=== PATIENT | male | born 1935 | race Caucasian/White ===

== ENCOUNTER 2017-04-12 14:30 | Outpatient (CLI) | payer MEDICARE, OTHER | END 2017-04-12 14:31 | disposition home or self-care (01) | LOC: LAB.R 14:30 | PROVIDERS: ATTEND Family Medicine | DX: L02.91 Cutaneous abscess, unspecified (principal) | CPT/HCPCS: 87070; 87205 ==

== ENCOUNTER 2018-07-27 15:34 | Outpatient (CLI) | payer MEDICARE, OTHER | END 2018-07-27 15:35 | disposition critical access hospital (66) | LOC: EMS 15:34 | PROVIDERS: ATTEND Surgery | DX: R06.02 Shortness of breath (principal) | CPT/HCPCS: A0425; A0427 ==

== ENCOUNTER 2018-07-27 15:56 | Inpatient (IN) | payer MEDICARE, OTHER ==
--- NOTE | 2018-07-27 16:15 | ED Physician Documentation ---
PD HPI CHEST PAIN - Stated complaint Stated Complaint: AFIB - Chief complaint Chief Complaint: Cardiac - History obtained from History obtained from: Patient, Family - History of Present Illness Timing - onset: Last night (2am started feeling dyspneic with sweating. Not assoc with chest pain. Noted BP at home was high, 130-175/70-85.) Review of Systems Ten Systems: 10 systems reviewed and negative Constitutional: denies: Fever, Chills Ears: reports: Reviewed and negative Nose: reports: Reviewed and negative Throat: reports: Reviewed and negative GI: reports: Reviewed and negative PD PAST MEDICAL HISTORY - Past Medical History Cardiovascular: None Respiratory: None Endocrine/Autoimmune: None GI: 21 : None HEENT: Chronic vision loss Psych: None Musculoskeletal: None Derm: Eczema - Past Surgical History Past Surgical History: Yes General: Colonoscopy - Present Medications Home Medications: Ambulatory Orders Medication Instructions Recorded Confirmed RX: Finasteride 5 mg PO QPM 07/27/18 07/27/18 RX: Metoprolol Succinate 100 mg PO DAILY 07/27/18 07/27/18 - Allergies Allergies/Adverse Reactions: Allergies Allergy/AdvReac Type Severity Reaction Status Date / Time Penicillins Allergy Intermediate Hives Verified 02/12/13 15:41 - Social History Does the pt smoke?: No Smoking Status: Never smoker Does the pt drink ETOH?: Yes Does the pt have substance abuse?: No - Immunizations Immunizations are current?: Yes - POLST Patient has POLST: No PD ED PE NORMAL - Vitals Vital signs reviewed: Yes (128 HR) - General General: Alert and oriented X 3, No acute distress - HEENT HEENT: PERRL, EOMI - Neck Neck: Supple, no meningeal sign, No bony TTP - Cardiac Cardiac: Other (irregular) - Respiratory Respiratory: No respiratory distress, Clear bilaterally - Abdomen Abdomen: Normal bowel sounds, Soft, Non tender - Back Back: No CVA TTP, No spinal TTP - Derm Derm: Normal color, Warm and dry - Extremities Extremities: No edema, No calf tenderness / cord - Neuro Neuro: Alert and oriented X 3, Normal speech - Psych Psych: Normal mood, Normal affect Results - Vitals Vitals: Vital Signs - 24 hr 07/27/18 07/27/18 07/27/18 16:03 16:57 17:22 Temperature 36.4 C L Heart Rate 128 H 107 H 108 H Respiratory 22 24 20 Rate Blood Pressure 154/108 H 100/85 H 140/99 H O2 Saturation 96 97 95 Oxygen O2 Source Room air - EKG (time done) 1602 Rate: Rate (enter#) (117) Rhythm: Atrial fibrillation Intervals: LBBB Computer interpretation: Agree with computer - Labs Labs: Laboratory Tests 07/27/18 07/27/18 07/27/18 16:03 16:03 16:30 WBC 6.1 RBC 4.34 L Hgb 14.3 Hct 43.2 MCV 99.5 H MCH 32.9 H MCHC 33.1 RDW 13.8 Plt Count 250 MPV 8.0 Neut # (Auto) 5.0 Lymph # (Auto) 0.3 L [place] # (Auto) 0.6 Eos # (Auto) 0.1 Baso # (Auto) 0.2 H Absolute Nucleated RBC 0.00 Nucleated RBC % 0.1 Sodium Potassium Chloride Carbon Dioxide Anion Gap BUN Creatinine Estimated GFR (MDRD) Glucose Calcium Magnesium Total Bilirubin AST ALT Alkaline Phosphatase Troponin I 0.05 B-Natriuretic Peptide Total Protein Albumin Globulin Albumin/Globulin Ratio Lipase TSH Ethyl Alcohol < 5.0 07/27/18 07/27/18 07/27/18 16:30 16:30 16:30 WBC RBC Hgb Hct MCV MCH MCHC RDW Plt Count MPV Neut # (Auto) Lymph # (Auto) [place] # (Auto) Eos # (Auto) Baso # (Auto) Absolute Nucleated RBC Nucleated RBC % Sodium 140 Potassium 3.9 Chloride 106 Carbon Dioxide 23 Anion Gap 11.0 BUN 29 H Creatinine 1.4 H Estimated GFR (MDRD) 48 L Glucose 113 H Calcium 8.5 Magnesium 2.3 Total Bilirubin 1.8 H AST 30 ALT 32 Alkaline Phosphatase 78 Troponin I 0.05 B-Natriuretic Peptide Total Protein 6.9 Albumin 3.4 Globulin 3.5 Albumin/Globulin Ratio 1.0 Lipase 27 TSH 3.18 Ethyl Alcohol 07/27/18 16:30 WBC RBC Hgb Hct MCV MCH MCHC RDW Plt Count MPV Neut # (Auto) Lymph # (Auto) [place] # (Auto) Eos # (Auto) Baso # (Auto) Absolute Nucleated RBC Nucleated RBC % Sodium Potassium Chloride Carbon Dioxide Anion Gap BUN Creatinine Estimated GFR (MDRD) Glucose Calcium Magnesium Total Bilirubin AST ALT Alkaline Phosphatase Troponin I B-Natriuretic Peptide 732 H Total Protein Albumin Globulin Albumin/Globulin Ratio Lipase TSH Ethyl Alcohol PD MEDICAL DECISION MAKING - ED course ED course: This is an 82-year-old gentleman presents with new onset atrial fibrillation. He also has a new or at least somewhat recent left bundle branch block, we know it was not there in 2012. On the monitor besides having rapid atrial fibrillation he is also having frequent episodes of paroxysmal ventricular tachycardia which are relatively asymptomatic. He was rate controlled with divided doses of metoprolol, but given the new left bundle branch block and the recurrent ventricular tachycardia structural or ischemic heart disease is significantly more concerning than in your [id number]-mill new onset atrial fi brillation and therefore he will be placed in observation and I called the hospitalist for same at 5:15 PM. Departure - Departure Disposition: ED Place in Observation Clinical Impression: Ventricular tachycardia, Atrial fibrillation Condition: Fair Discharge Date/Time: 07/27/18 18:50
[2018-07-27] MEDS ORDERED: METOPROLOL 5 MG/5 ML VIAL IVP STA ×2 (16:30→17:14)
[2018-07-27 16:36] LABS: BASOPHILS # (AUTO) 0.2 10^3/uL (0.0-0.1); BASOPHILS % (AUTO) 2.8 %; EOSINOPHILS # (AUTO) 0.1 10^3/uL (0.0-0.7); EOSINOPHILS % (AUTO) 1.1 %; HGB - HEMOGLOBIN 14.3 g/dL (14.0-18.0); LYMPHOCYTES # (AUTO) 0.3 10^3/uL (1.5-3.5); LYMPHOCYTES % (AUTO) 4.4 %; MEAN CORPUSCULAR HEMOGLOBIN 32.9 pg (27.0-31.0); MEAN CORPUSCULAR HGB CONC 33.1 g/dL (32.0-36.0); MEAN CORPUSCULAR VOLUME 99.5 fL (80.0-94.0); MONOCYTES # (AUTO) 0.6 10^3/uL (0.0-1.0); MONOCYTES % (AUTO) 9.2 %; NEUTROPHILS % (AUTO) 82.5 %; PLT - PLATELET COUNT 250 10^3/uL (130-450); RED BLOOD COUNT 4.34 10^6/uL (4.70-6.10); RED CELL DISTRIBUTION WIDTH 13.8 % (12.0-15.0); WHITE BLOOD COUNT 6.1 x10^3/uL (4.8-10.8)
[2018-07-27 16:58] LABS: ALBUMIN 3.4 g/dL (3.2-5.5); BILIRUBIN,TOTAL 1.8 mg/dL (0.2-1.0); CALCIUM 8.5 mg/dL (8.5-10.3); CREATININE 1.4 mg/dL (0.6-1.2); MAGNESIUM 2.3 mg/dL (1.7-2.8); TOTAL PROTEIN 6.9 g/dL (6.7-8.2)
[2018-07-27] MEDS ORDERED: SODIUM CHLORIDE FLUSH 0.9% 10 ML SYRINGE IVP PRN (17:54)
[2018-07-27] MEDS ORDERED: ACETAMINOPHEN 325 MG TABLET PO PRN (17:54)
[2018-07-27] MEDS ORDERED: LACTATED RINGERS 1,000 ML IV SCH (18:00)
--- NOTE | 2018-07-27 18:27 | XRAY Report ---
Reason: new afib with arrythmias Procedure Date: 07/27/2018 Accession Number: [id number] / [id number] Procedure: XR - Chest 1 View X-Ray CPT Code: 28724 FULL RESULT: EXAM: CHEST RADIOGRAPHY EXAM DATE: 07/27/2018 05:55 PM. CLINICAL HISTORY: New afib with arrythmia. COMPARISON: 02/16/2013 5:53 PM. TECHNIQUE: 1 view. FINDINGS: Lungs/Pleura: Lungs are well expanded. There is increased opacity within the lower lungs. There is costophrenic sulcus blunting. There is no evidence of pneumothorax. Mediastinum: There is mild cardiomegaly. There is thoracic aortic tortuosity. Other: None. IMPRESSION: 1. There is mild cardiomegaly with thoracic aortic tortuosity. 2. There is increased opacity within the mid and lower lungs with costophrenic sulcus blunting. Findings are suspicious for lung edema secondary to heart failure. 3. No evidence of pneumothorax. RADIA
[2018-07-27] MEDS ORDERED: FUROSEMIDE 20 MG/2 ML VIAL IVP SCH (18:41)
[2018-07-27] MEDS: FINASTERIDE 5 MG TABLET PO SCH (20:16)
--- NOTE | 2018-07-27 21:17 | HISTORY & PHYSICAL EXAMINATION ---
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 The patient went to see his doctor for a routine visit several days ago and he was found to have an "abnormal EKG" and was referred to a Stamping Die Maker, who he has not seen yet. He awoke this morning at 2:00 a.m. with sudden shortness of breath and diaphoresis. No chest pain. He measured his blood pressure which was elevated. He saw his PCP who sent him to the emergency room many hours later, however and was found to be in Afib of new onset with left bundle branch block, heart rate in the 100s to 120s and he received IV beta dolores 5 mg. Of note is that telemetry also showed bursts of Vtach with a different morphology than his left bundle appearing Afib rhythm. He is being placed in Observation for evaluation of the new rhythm and his sudden shortness of breath with diaphoresis. PAST MEDICAL HISTORY: HTN, BPH, colon or skin cancer. SOCIAL HISTORY: The patient is a nonsmoker, does drink alcohol, denies any illicit drug use. FAMILY HISTORY: Noncontributory. REVIEW OF SYSTEMS: The patient denies any past cardiac history, has never had a stress test, denies CHF symptoms or angina. He did describe possible palpitations just today. He has never had syncope. He describes an Echo done several times durimg his chemo and was told he "had a strong heart'. A comprehensive review of systems was performed and the pertinent positives are listed, the rest are negative. PHYSICAL EXAMINATION GENERAL: Elderly white male. He is in no distress sitting upright in bed. VITAL SIGNS: Blood pressure 154/108, heart rate 108 to 128 in Afib. After the IV beta dolores, the heart rate has come down to 50 to 100 in Afib. He is afebrile. Room air oxygen saturation 95%. HEENT: Unremarkable except [place]. NECK: Without JVD. No thyromegaly. No carotid bruits. LUNGS: Clear. HEART: Sounds irregular. No murmur. ABDOMEN: Soft, nontender. No organomegaly. EXTREMITIES: No clubbing, cyanosis, edema. NEUROLOGIC: Grossly intact. LABORATORIES: Normal electrolytes, BUN 29, creatinine 1.4. Normally, his creatinine is lower. Bilirubin elevated at 1.8 with normal AST, ALT and alk phos. Troponin is normal at 0.05. TSH is normal at 3.12. BNP is pending. White count 6.1 with a normal differential, hemoglobin 14.3 with elevated MCV of 99.5, normal platelets of 250. No INR was done. Serum toxicology showed no alcohol present. No urinalysis was done. Chest x-ray blunted angle consistent with CHF and cardiomegaly is present. EKG: Afib with left bundle branch block. ASSESSMENT AND PLAN: 1. New onset of atrial fibrillation. 2. Paroxysmal runs of ventricular tachycardia. 3. New left bundle branch block. 4. Hyperbilirubinemia with macrocytosis on his CBC but normal liver tests. 5. Acute kidney injury with elevation of BUN and creatinine, possibly from dehydration. PLAN: Place the patient in Observation status, on telemetry. Continue with his p.o. beta dolores dose, medication for BPH and for DVT prophylaxis, we will use Lovenox. Cycle his troponins x3. Obtain a BNP and follow this. Give Lasix IV x1 and follow his I's and O's and daily weights. Follow his BMP and magnesium daily. Obtain an Echo to establish LV and RV contractility. Aftre knowing the EF, his CHADS score will be determined. Magnesium and Potassium were normal, so not the etiology for the V-tach, but this may have been elevated from his new renal insufficiency. Follow his BUN and creatinine daily and if elevated, we will begin a workup for intrinsic renal disease. Avoid nephrotoxic agents. CODE STATUS: DNR (has POLST file). DEEP VENOUS THROMBOSIS PROPHYLAXIS: Lovenox. ATTESTATION: The patient is expected to be discharged and transferred to another facility within 96 hours: Yes. cc: Marley Ellis MD TD: 07/27/2018 19:18 MTDD
[2018-07-27 21:29] LABS: MUDS CUTOFF CONCENTRATIONS CUTOFF CONC BELOW:
[2018-07-27 21:41] LABS: AMPHETAMINE SCREEN,URINE NEGATIVE (NEGATIVE); BENZODIAZEPINES SCREEN, URINE NEGATIVE (NEGATIVE); COCAINE SCREEN URINE NEGATIVE (NEGATIVE); METHADONE SCREEN, URINE NEGATIVE (NEGATIVE); METHAMPHETAMINES SCREEN, URINE NEGATIVE (NEGATIVE); OPIATE SCREEN, URINE NEGATIVE (NEGATIVE); OXYCODONE SCREEN, URINE NEGATIVE (NEGATIVE); PROPOXYPHENE SCREEN, URINE NEGATIVE (NEGATIVE); TRICYCLIC ANTIDEPRESSANT,URINE NEGATIVE (NEGATIVE)
[2018-07-27] MEDS: SODIUM CHLORIDE FLUSH 0.9% 10 ML SYRINGE IVP SCH (23:47)
[2018-07-28 05:29] LABS: BASOPHILS # (AUTO) 0.1 10^3/uL (0.0-0.1); EOSINOPHILS # (AUTO) 0.1 10^3/uL (0.0-0.7); EOSINOPHILS % (AUTO) 2.2 %; HGB - HEMOGLOBIN 13.6 g/dL (14.0-18.0); LYMPHOCYTES # (AUTO) 0.4 10^3/uL (1.5-3.5); LYMPHOCYTES % (AUTO) 6.8 %; MEAN CORPUSCULAR HEMOGLOBIN 33.1 pg (27.0-31.0); MEAN CORPUSCULAR HGB CONC 33.3 g/dL (32.0-36.0); MEAN CORPUSCULAR VOLUME 99.3 fL (80.0-94.0); MEAN PLATELET VOLUME 7.8 fL (7.4-11.4); MONOCYTES # (AUTO) 0.5 10^3/uL (0.0-1.0); MONOCYTES % (AUTO) 10.4 %; NEUTROPHILS # (AUTO) 4.2 10^3/uL (1.5-6.6); NEUTROPHILS % (AUTO) 79.6 %; PLT - PLATELET COUNT 251 10^3/uL (130-450); RED BLOOD COUNT 4.11 10^6/uL (4.70-6.10); RED CELL DISTRIBUTION WIDTH 13.9 % (12.0-15.0); WHITE BLOOD COUNT 5.3 x10^3/uL (4.8-10.8)
[2018-07-28 05:44] LABS: ALBUMIN 3.2 g/dL (3.2-5.5); BILIRUBIN,TOTAL 1.3 mg/dL (0.2-1.0); CALCIUM 8.3 mg/dL (8.5-10.3); CREATININE 1.4 mg/dL (0.6-1.2); MAGNESIUM 2.3 mg/dL (1.7-2.8); TOTAL PROTEIN 6.4 g/dL (6.7-8.2)
[2018-07-28] MEDS: PANTOPRAZOLE 40 MG TABLET PO SCH (06:24)
[2018-07-28] MEDS: POLYETHYLENE GLYCOL 3350 17 GM PACKET PO SCH (07:21)
[2018-07-28] MEDS ORDERED: METOPROLOL SUCCINATE 50 MG TABLET PO SCH ×2 (09:00→21:00)
[2018-07-28] MEDS ORDERED: ENOXAPARIN 40 MG/0.4 ML SYRINGE SUBQ SCH (09:00)
[2018-07-28] MEDS: SODIUM CHLORIDE FLUSH 0.9% 10 ML SYRINGE IVP SCH ×3 (09:02→23:44)
[2018-07-28] MEDS ORDERED: FUROSEMIDE 20 MG TABLET PO SCH (12:00)
[2018-07-28] MEDS: APIXABAN 2.5 MG TABLET PO SCH ×2 (13:47→20:51)
[2018-07-28] MEDS: SPIRONOLACTONE 25 MG TABLET PO SCH (13:47)
--- NOTE | 2018-07-28 15:03 | PROVIDER PROGRESS NOTE ---
Assessment/Plan - Problem List (1) Atrial fibrillation Qualifiers: Atrial fibrillation type: persistent Qualified Code(s): I48.1 - Persistent atrial fibrillation Assessment/Plan: His HR is under better control with the few addnl doses of iv Metoprolol. Will increase po Metoprolol from 100 mg daily to 100 mg in am and 50 mg in pm. Remain on telemetry as doses being titrated. Assess HR control with increased activity, explained to Pt and . Also, his CHADS score = 3 (CHF, HTN and age>75), therefore he will be put on anticoagulant. Will begin Eliquis and stop Lovenox (which was a DVT prophylactic dose). Hyperthyroidism has been riled out, as the cause of Afib. He will need eval for CAD, which can be done as an outpatient, after his orthopnea from heart failure is controlled. (2) Acute on chronic systolic CHF (congestive heart failure), NYHA class 3 Assessment/Plan: Troponins were flat, ruling out an acute [place]. The Echo shows LVEF of 35-40% with global hypokinesis and mild-moderate pulmonary HTN, mild-moderate mitral and tricuspid regurgitation. Will increase Metoprolol dose, add Spironolactone, avoid NARINDER (since he had excessive BP drop and has elevated creat), give (several days) of Lasix. Will adjust meds based on his SOB and any orthostasis, therefore Pt will stay longer and I will make him an inpatient. This was explained to Pt and . The etiology is most likely his chemo Hx (he got 5FU and possibly Adriamycin), but he will need evaluation for CAD as the cause of his systolic heart failure. Will check a Lipid panel. Monitor BMP and Mg daily. (3) Ventricular tachycardia Assessment/Plan: No sutained VT. These may also have been paroxysms of Aflutter with his underlying BBB. He has a DNR status, therefore angeline i not a candidate for consideration for a defibrillator. (4) HTN (hypertension) Qualifiers: Hypertension type: essential hypertension Qualified Code(s): I10 - Essential (primary) hypertension Assessment/Plan: Starting meds for CHF as above, will give further BP control. (5) BPH (benign prostatic hyperplasia) Assessment/Plan: Continue Finasteride. - Current Meds Current Meds: Current Medications Generic Name Dose Route Start Last Admin Trade Name Freq PRN Reason Stop Dose Admin Apixaban 2.5 mg 07/28/18 11:00 07/28/18 13:47 Eliquis PO 2.5 mg BID MARY Administration Finasteride 5 mg 07/27/18 21:00 07/27/18 20:16 Proscar PO 5 mg QPM MARY Administration Furosemide 20 mg 07/28/18 12:00 07/28/18 13:47 Lasix PO 20 mg DAILY MARY Administration Metoprolol Succinate 100 mg 07/28/18 09:00 07/28/18 09:01 Toprol Xl PO 100 mg DAILY MARY Administration Pantoprazole Sodium 40 mg 07/28/18 07:00 07/28/18 06:24 Protonix PO 40 mg QDAC MARY Administration Polyethylene Glycol 17 gm 07/28/18 09:00 07/28/18 07:21 Miralax PO Not Given DAILY MARY Sodium Chloride 10 ml 07/27/18 17:54 07/27/18 20:19 Normal Saline Flush 0.9% IVP 10 ml PRN PRN Administration NEEDED PER PROVIDER ORDERS Sodium Chloride 10 ml 07/28/18 01:00 07/28/18 09:02 Normal Saline Flush 0.9% IVP 10 ml 0100,0900,1700 MARY Administration Spironolactone 25 mg 07/28/18 11:00 07/28/18 13:47 Aldactone PO 25 mg DAILY MARY Administration - Lab Result Fish Bone Diagrams: 07/28/18 05:14 07/28/18 05:14 - Additional Planning My Orders: My Active Orders 07/27/18 17:54 Activity Orders [RC] Routine IO [RC] IOSHIFT Initiate Bowel Care Protocol [RC] .protocol Initiate Line Care Protocol [RC] .protocol Initiate Line Care Protocol [RC] .protocol Initiate Personal Care Protoco [RC] .protocol Oxygen Therapy [RC] Routine Telemetry (24 Hour) [RC] Q4HR Vital Signs [RC] 0800,1600,0000 Acetaminophen [Tylenol] 650 mg PO Q4HR PRN Sodium Chloride Flush 0.9% [Normal Saline Flush 0.9%] 10 ml IVP PRN PRN Code Status [OTHERS] Routine Condition of Patient [OTHERS] Routine DVT Prophylaxis [OTHERS] Routine 07/27/18 17:56 IV Insert [RC] .ONCE 07/27/18 21:00 Finasteride [Proscar] 5 mg PO QPM 07/27/18 Dinner Low Sodium Diet [DIET] 07/28/18 01:00 Sodium Chloride Flush 0.9% [Normal Saline Flush 0.9%] 10 ml IVP 0100,0900,1700 07/28/18 07:00 Pantoprazole [Protonix] 40 mg PO QDAC 07/28/18 08:00 Echo Transthoracic Complete [ECHO] Routine 07/28/18 09:00 Metoprolol Succinate [Toprol Xl] 100 mg PO DAILY Polyethylene Glycol 3350 [Miralax] 17 gm PO DAILY 07/28/18 11:00 Apixaban [Eliquis] 2.5 mg PO BID Spironolactone [Aldactone] 25 mg PO DAILY 07/28/18 12:00 Furosemide [Lasix] 20 mg PO DAILY 07/28/18 21:00 Metoprolol Succinate [Toprol Xl] 50 mg PO QPM 07/29/18 05:00 BNP - B-NATRIURETIC PEPTIDE [IAI] DAILYLAB CBC - COMP BLD CT W/AUTO DIFF [HEME] DAILYLAB CMP [COMPREHENSIVE METABOLIC PANEL] [CHEM] DAILYLAB MAGNESIUM [CHEM] DAILYLAB Subjective - Subjective Patient Reports: No Complaints Objective Vital Signs: Vital Signs - 24 hr 07/27/18 07/27/18 07/27/18 16:03 16:57 17:22 Temperature 36.4 C L Heart Rate 128 H 107 H 108 H Heart Rate [ Monitoring electrodes] Heart Rate [ Radial] Respiratory 22 24 20 Rate Blood Pressure 154/108 H 100/85 H 140/99 H Blood Pressure [Right arm] O2 Saturation 96 97 95 07/27/18 07/27/18 07/27/18 19:01 19:05 23:49 Temperature 36.5 C 36.5 C Heart Rate Heart Rate [ 110 H 106 H Monitoring electrodes] Heart Rate [ 53 L Radial] Respiratory 14 16 Rate Blood Pressure Blood Pressure 143/81 H 145/94 H [Right arm] O2 Saturation 96 96 07/28/18 07/28/18 07/28/18 05:38 09:02 14:29 Temperature 36.5 C 36.7 C 36.4 C L Heart Rate Heart Rate [ 60 Monitoring electrodes] Heart Rate [ 87 55 L Radial] Respiratory 17 16 19 Rate Blood Pressure Blood Pressure 130/97 H 143/102 H 155/80 H [Right arm] O2 Saturation 94 97 97 07/28/18 14:41 Temperature 36.1 C L Heart Rate Heart Rate [ 104 H Monitoring electrodes] Heart Rate [ Radial] Respiratory 18 Rate Blood Pressure Blood Pressure 139/82 H [Right arm] O2 Saturation 96 Oxygen O2 Source Room air I&O (Last 24 Hrs): Intake and Output Totals x24h 07/26/18 07/27/18 07/28/18 23:59 23:59 23:59 Intake Total 200 560 Output Total 400 500 Balance -200 60 General: Alert, Oriented x3 HEENT: Mucous membr. moist/pink Neck: Supple, No JVD Neuro: Non Focal Cardiovascular: Other (Irreg, 1/6 murmur throughhout) Respiratory: No respiratory distress, Breath sounds nml Abdomen: Soft Extremities: No edema - Results Results: Laboratory Results WBC 5.3 x10^3/uL (4.8-10.8) 07/28/18 05:14 RBC 4.11 10^6/uL (4.70-6.10) L 07/28/18 05:14 Hgb 13.6 g/dL (14.0-18.0) L 07/28/18 05:14 Hct 40.9 % (42.0-52.0) L 07/28/18 05:14 MCV 99.3 fL (80.0-94.0) H 07/28/18 05:14 MCH 33.1 pg (27.0-31.0) H 07/28/18 05:14 MCHC 33.3 g/dL (32.0-36.0) 07/28/18 05:14 RDW 13.9 % (12.0-15.0) 07/28/18 05:14 Plt Count 251 10^3/uL (130-450) 07/28/18 05:14 MPV 7.8 fL (7.4-11.4) 07/28/18 05:14 Neut # (Auto) 4.2 10^3/uL (1.5-6.6) 07/28/18 05:14 Lymph # (Auto) 0.4 10^3/uL (1.5-3.5) L 07/28/18 05:14 [place] # (Auto) 0.5 10^3/uL (0.0-1.0) 07/28/18 05:14 Eos # (Auto) 0.1 10^3/uL (0.0-0.7) 07/28/18 05:14 Baso # (Auto) 0.1 10^3/uL (0.0-0.1) 07/28/18 05:14 Absolute Nucleated RBC 0.00 x10^3/uL 07/28/18 05:14 Nucleated RBC % 0.0 /100WBC 07/28/18 05:14 Sodium 139 mmol/L (135-145) 07/28/18 05:14 Potassium 3.5 mmol/L (3.5-5.0) 07/28/18 05:14 Chloride 106 mmol/L (101-111) 07/28/18 05:14 Carbon Dioxide 23 mmol/L (21-32) 07/28/18 05:14 Anion Gap 10.0 (6-13) 07/28/18 05:14 BUN 29 mg/dL (6-20) H 07/28/18 05:14 Creatinine 1.4 mg/dL (0.6-1.2) H 07/28/18 05:14 Estimated GFR (MDRD) 48 (>89) L 07/28/18 05:14 Glucose 107 mg/dL (70-100) H 07/28/18 05:14 Calcium 8.3 mg/dL (8.5-10.3) L 07/28/18 05:14 Magnesium 2.3 mg/dL (1.7-2.8) 07/28/18 05:14 Total Bilirubin 1.3 mg/dL (0.2-1.0) H 07/28/18 05:14 AST 22 IU/L (10-42) 07/28/18 05:14 ALT 28 IU/L (10-60) 07/28/18 05:14 Alkaline Phosphatase 75 IU/L (42-121) 07/28/18 05:14 Troponin I 0.04 ng/mL (<0.49) 07/28/18 05:14 B-Natriuretic Peptide 651 pg/mL (5-100) H 07/28/18 05:14 Total Protein 6.4 g/dL (6.7-8.2) L 07/28/18 05:14 Albumin 3.2 g/dL (3.2-5.5) 07/28/18 05:14 Globulin 3.2 g/dL (2.1-4.2) 07/28/18 05:14 Albumin/Globulin Ratio 1.0 (1.0-2.2) 07/28/18 05:14 Lipase 27 U/L (22-51) 07/27/18 16:30 TSH 3.18 uIU/mL (0.34-5.60) 07/27/18 16:30 Urine Opiates Screen NEGATIVE (NEGATIVE) 07/27/18 21:25 Ur Oxycodone Screen NEGATIVE (NEGATIVE) 07/27/18 21:25 Urine Methadone Screen NEGATIVE (NEGATIVE) 07/27/18 21:25 Ur Propoxyphene Screen NEGATIVE (NEGATIVE) 07/27/18 21:25 Ur Barbiturates Screen NEGATIVE (NEGATIVE) 07/27/18 21:25 Ur Tricyclics Screen NEGATIVE (NEGATIVE) 07/27/18 21:25 Ur Phencyclidine Scrn NEGATIVE (NEGATIVE) 07/27/18 21:25 Ur Amphetamine Screen NEGATIVE (NEGATIVE) 07/27/18 21:25 U Methamphetamines Scrn NEGATIVE (NEGATIVE) 07/27/18 21:25 U Benzodiazepines Scrn NEGATIVE (NEGATIVE) 07/27/18 21:25 Urine Cocaine Screen NEGATIVE (NEGATIVE) 07/27/18 21:25 U Cannabinoids Screen NEGATIVE (NEGATIVE) 07/27/18 21:25 Ethyl Alcohol < 5.0 mg/dL 07/27/18 16:03 - Procedures Procedures: Procedures ANAL BIOPSY (08/26/13) RIGID PROCTOSIGMOIDOSCOPY (08/26/13) VENOUS CATHETERIZATION NEC (01/31/13) ABX Reporting Has patient been on IV antibiotics over the past 48 hours?: No
[2018-07-28] MEDS: FINASTERIDE 5 MG TABLET PO SCH (20:52)
[2018-07-29 06:05] LABS: BASOPHILS # (AUTO) 0.1 10^3/uL (0.0-0.1); EOSINOPHILS # (AUTO) 0.1 10^3/uL (0.0-0.7); EOSINOPHILS % (AUTO) 1.5 %; HGB - HEMOGLOBIN 13.7 g/dL (14.0-18.0); LYMPHOCYTES # (AUTO) 0.4 10^3/uL (1.5-3.5); LYMPHOCYTES % (AUTO) 5.8 %; MEAN CORPUSCULAR HEMOGLOBIN 32.4 pg (27.0-31.0); MEAN CORPUSCULAR HGB CONC 32.6 g/dL (32.0-36.0); MEAN CORPUSCULAR VOLUME 99.3 fL (80.0-94.0); MEAN PLATELET VOLUME 7.7 fL (7.4-11.4); MONOCYTES # (AUTO) 0.6 10^3/uL (0.0-1.0); MONOCYTES % (AUTO) 9.8 %; NEUTROPHILS % (AUTO) 81.9 %; PLT - PLATELET COUNT 240 10^3/uL (130-450); RED BLOOD COUNT 4.23 10^6/uL (4.70-6.10); RED CELL DISTRIBUTION WIDTH 14.1 % (12.0-15.0); WHITE BLOOD COUNT 6.1 x10^3/uL (4.8-10.8)
[2018-07-29] MEDS: PANTOPRAZOLE 40 MG TABLET PO SCH (06:06)
[2018-07-29 06:28] LABS: ALBUMIN 3.2 g/dL (3.2-5.5); BILIRUBIN,TOTAL 1.6 mg/dL (0.2-1.0); CALCIUM 8.4 mg/dL (8.5-10.3); CREATININE 1.5 mg/dL (0.6-1.2); MAGNESIUM 2.1 mg/dL (1.7-2.8); TOTAL PROTEIN 6.3 g/dL (6.7-8.2)
[2018-07-29 06:31] LABS: CHOL/HDL RATIO 3.1 (<5.0); CHOLESTEROL 111 mg/dL; HDL CHOLESTEROL 36 mg/dL; LDL CHOLESTEROL,CALCULATED 59 mg/dL; LDL/HDL RATIO 1.6 (<3.6); VLDL CHOLESTEROL 16 mg/dL
[2018-07-29] MEDS: APIXABAN 2.5 MG TABLET PO SCH (09:54)
[2018-07-29] MEDS: SPIRONOLACTONE 25 MG TABLET PO SCH (09:54)
[2018-07-29] MEDS: SODIUM CHLORIDE FLUSH 0.9% 10 ML SYRINGE IVP SCH (09:55)
[2018-07-29] MEDS: POLYETHYLENE GLYCOL 3350 17 GM PACKET PO SCH (09:55)
[2018-07-29] MEDS ORDERED: hydrALAZINE 10 MG TABLET PO SCH (10:00)
[2018-07-29] MEDS ORDERED: METOPROLOL SUCCINATE 50 MG TABLET PO SCH ×2 (10:26→21:00)
[2018-07-29 12:47] VITALS: BP 132/103
--- NOTE | 2018-07-29 13:03 | Discharge Plan ---
Discharge Plan Disposition: Home, Self Care Condition: Stable Prescriptions: Apixaban [Eliquis] 2.5 mg PO BID #60 tablet hydrALAZINE [Apresoline] 10 mg PO BID #60 tablet Metoprolol Succinate 100 mg PO BID #60 tab.er.24h Spironolactone [Aldactone] 25 mg PO DAILY #30 tablet Diet: Low Sodium Activity Restrictions: Activity as Tolerated Shower Restrictions: No Driving Restrictions: No Instruction Topics: Heart Failure Tracking Weight, Heart Failure Meds Control, Cardiomyopathy Dc, Atrial Fibrillation, Stroke Prevent Live W Atrial Fib Additional Instructions or Follow Up instructions: You were admitted for management of new Atrial fibrillation (Afib) and new Congestive Heart Failure. Your medicines have been changed. Please follow the new list of medications and doses. The Finasteride was not changed. You need to see your PCP within a week for medication adjustments and to get a scheduled referral to a Workforce Specialist. You will need a stress test as an outpatient. DO NOT PERFORM EXERTIONAL ACTIVITIES until you are cleared by your PCP or Cardiologuist. No lifting more than 10 lbs, no climbing more than 10 stairs, no outdoor exercise or gardening/lawn care. You need to decrease your salt intake, it makes a person retain water which will make you short of breath. Please weigh yourself every day at the same time of day, write that in a journal and bring that to your doctor's appointments. After management by your Workforce Specialist, you qualify for enrolling in the Cardiac Rehab outpatient program here in the [facility]. If you have new or worsening symptoms, come back to the ER. No Smoking: If you smoke, Please STOP! Call for help. Follow-up with: Marley Ellis MD [Primary Care Provider] -
--- NOTE | 2018-08-02 16:03 | DISCHARGE SUMMARY ---
Physician: Randee Doyle MD DATE OF ADMISSION: 07/27/2018 DATE OF DISCHARGE: 07/29/2018 HISTORY OF PRESENT ILLNESS: This is an 82-year-old white male with a history of cancer, status post chemo, radiation and surgery with a colostomy, history of BPH and hypertension. LISINOPRIL in the past caused "an excessive drop in blood pressure." The patient reports having a routine office visit and an abnormal EKG was seen and he was referred to a [employer], he has not yet had that appointment. On the morning of this admission, he awoke at 2:00 a.m. with orthopnea and diaphoresis and came to the emergency room. He was found to be in new atrial fibrillation and to have a new bundle branch block and was admitted for management. His chest x-ray showed CHF. HOSPITAL COURSE AND DISCHARGE DIAGNOSES 1. Persistent Atrial fibrillation. The patient reported no sensation of palpitations. His heart rate of 120 required several doses of IV beta dolores and then his Toprol-XL 100 mg a.m. dose was increased eventually to a 100 mg b.i.d. dose on which he was discharged. The patient had an Echo showing an LVEF that was 35%. His CHADS score therefore equals 3 (age over 75, hypertension, CHF) and he was started on Eliquis 2.5 mg b.i.d. A new prescription was ordered. 2. Left bundle branch block. This may be the finding that was seen in the PCP office. 3. Acute (on chronic) systolic heart failure, [place] [employer] class III. The patient required 2 days of diuretics and then had marked improvement in his orthopnea and dyspnea. An Echo was done that showed a new depressd LVEF of 35-40% and normal RV size and function, biatrial enlargement, left greater than right, mild aortic regurgitation, [id number] mitral regurgitation and tricuspid regurgitation and PA pressure elevated at 59 mmHg. The patient was sent home on hydralazine, no NARINDER inhibitor because of the renal insufficiency and the history of Lisinopril dropping his blood pressure excessively. He was also put on Spironolactone. The etiology of his depressed EF could be his history of chemotherapy, or tachycardia-induced cardiomyopathy or coronary ischemic cardiomyopathy need to be ruled out. He was told not to have excessive exertion until seen by a [employer] and evaluation for CAD needs to be done. 4. Ventricular tachycardia. Because of his left bundle branch block, when his atrial fibrillation was rapid and regular, as with potential atrial flutter, the appearance was of V-tach on telemetry. He was asymptomatic with this and troponin values were not consistent with an acute OK and he had normal magnesium levels of 2.3 and 2.1 and potassium of 3.5 and 3.8. 5. Hypertension. The patient's medications were adjusted. 6. Benign prostatic hypertrophy. His Finasteride was continued. 9. Colostomy. Stable. LABORATORY AND IMAGING: Reviewed and summarized above. ALLERGIES: PENICILLIN. MEDICATION AT DISCHARGE 1. Finasteride 5 mg every night. 2. Eliquis 2.5 mg b.i.d. 3. Hydralazine 10 mg b.i.d. 4. Toprol-XL 100 mg b.i.d. 5. Spironolactone 25 mg daily at noon. CONDITION AT DISCHARGE: Stable. PHYSICAL EXAMINATION VITAL SIGNS: Blood pressure 130/86, heart rate of 60-120, in atrial fibrillation. HEENT: Unremarkable. NECK: Without JVD or carotid bruits. CHEST: Clear. HEART: Heart sounds are irregular without audible murmur. ABDOMEN: Soft. EXTREMITIES: Without edema. NEUROLOGIC: Intact. FOLLOWUP: He was advised to see his PCP within a week and also needs that Cardiology appointment soon. He needs an outpatient stress test or coronary angiogram. CODE STATUS: DNR. Time required to complete this entire discharge, patient education, chart review, prescription orders, and dictation: 60 minutes. cc: Marley Ellis MD TD: 08/02/2018 15:39 [facility]
== END 2018-07-29 13:35 | disposition home or self-care (01) | DRG 291 ==
LOC: EDUNIT# → ED 15:56 → OBS 17:54 → OBSVTOIN 07-28 11:00 → MS2 07-28 14:37
PROVIDERS: ADMIT Internal Medicine; ATTEND Internal Medicine
DX: I13.0 Hypertensive heart and chronic kidney disease with heart failure and stage 1 through stage 4 chronic kidney disease, or unspecified chronic kidney disease (principal); I48.91 Unspecified atrial fibrillation; I50.23 Acute on chronic systolic (congestive) heart failure; I48.1 Persistent atrial fibrillation; I47.2 Ventricular tachycardia; N17.9 Acute kidney failure, unspecified; N18.9 Chronic kidney disease, unspecified; I44.7 Left bundle-branch block, unspecified; I08.3 Combined rheumatic disorders of mitral, aortic and tricuspid valves; I27.20 Pulmonary hypertension, unspecified; N40.0 Benign prostatic hyperplasia without lower urinary tract symptoms; H91.90 Unspecified hearing loss, unspecified ear; Z66 Do not resuscitate; Z93.3 Colostomy status; Z92.21 Personal history of antineoplastic chemotherapy; Z79.899 Other long term (current) drug therapy; Z85.048 Personal history of other malignant neoplasm of rectum, rectosigmoid junction, and anus; Z92.3 Personal history of irradiation
CPT/HCPCS: 36415; 71045; 80053; 80061; 80306; 80320; 83690; 83721; 83735; 83880; 84443; 84484; 85025; 93005; 93306; 94761; 96372; 96374; 96376; 99283; 99284; 99285

== ENCOUNTER 2018-08-11 08:41 | Emergency (ER) | payer MEDICARE, OTHER ==
[2018-08-11] MEDS ORDERED: BUFFERED LIDOCAINE 10 ML SYRINGE SUBQ STA (08:55)
--- NOTE | 2018-08-11 08:56 | ED Physician Documentation ---
PD HPI UPPER EXT INJURY - Stated complaint Stated Complaint: R ARM LAC - History obtained from History obtained from: Patient - History of Present Illness Location: Right, Forearm Type of injury: Fall Timing - onset: Last night Timing - duration: Hours Timing - details: Abrupt onset, Still present Improved by: Rest, Immobilization Worsened by: Moving, Palpating Associated symptoms: No: Weakness, Numbness, Tingling, Swelling Contributing factors: Anticoagulated Similar symptoms before: Diagnosis (thin skin avulsion) Recently seen: Admitted - Additonal information Additional information: 83-year-old male with a history of colon cancer and atrial fibrillation has recently been placed on Eliquis and he is fallen and injured his right forearm with a thin skin tear. He did not hit his head he has not had other injuries and he was able to dress the wound with gauze and tape to control bleeding last night. Review of Systems Constitutional: denies: Fever Eyes: denies: Decreased vision Ears: denies: Ear pain Nose: denies: Congestion Throat: denies: Sore throat Cardiac: denies: Chest pain / pressure, Palpitations Respiratory: denies: Dyspnea, Cough GI: denies: Abdominal Pain, Nausea, Vomiting : denies: Dysuria, Frequency Skin: reports: Laceration (s) Musculoskeletal: reports: Extremity pain. denies: Neck pain, Back pain PD PAST MEDICAL HISTORY - Past Medical History Cardiovascular: None Respiratory: None Neuro: None Endocrine/Autoimmune: None GI: 21 : None HEENT: Chronic vision loss Psych: None Musculoskeletal: None Derm: Eczema - Past Surgical History Past Surgical History: Yes General: Colonoscopy - Present Medications Home Medications: Ambulatory Orders Medication Instructions Recorded Confirmed Finasteride 5 mg PO QPM 07/27/18 07/27/18 Apixaban [Eliquis] 2.5 mg PO BID #60 tablet 07/29/18 Metoprolol Succinate 100 mg PO BID #60 tab.er.24h 07/29/18 Spironolactone [Aldactone] 25 mg PO DAILY #30 tablet 07/29/18 hydrALAZINE [Apresoline] 10 mg PO BID #60 tablet 07/29/18 - Allergies Allergies/Adverse Reactions: Allergies Allergy/AdvReac Type Severity Reaction Status Date / Time Penicillins Allergy Intermediate Hives Verified 08/11/18 08:57 - Social History Does the pt smoke?: No Smoking Status: Never smoker Does the pt drink ETOH?: Yes Does the pt have substance abuse?: No - Immunizations Immunizations are current?: Yes - POLST Patient has POLST: No PD ED PE NORMAL - Vitals Vital signs reviewed: Yes (hypertensive) - General General: Alert and oriented X 3, No acute distress, Well developed/nourished - HEENT HEENT: Atraumatic, PERRL, EOMI - Neck Neck: Supple, no meningeal sign - Respiratory Respiratory: No respiratory distress - Derm Derm: Normal color, Warm and dry, No rash - Extremities Extremities: No deformity, No edema, Other (There is a superficial flap of skin over the brachioradialis on the right side. The distal n/v is intact and there is full rom of the wirst elbow and shoulder. ) - Neuro Neuro: No motor deficit, No sensory deficit Eye Opening: Spontaneous Motor: Obeys Commands Verbal: Oriented GCS Score: 15 - Psych Psych: Normal mood, Normal affect Results - Vitals Vitals: Vital Signs - 24 hr 08/11/18 08:52 Temperature 36.0 C L Heart Rate 68 Respiratory 16 Rate Blood Pressure 174/93 H O2 Saturation 100 Oxygen O2 Source Room air Procedures - Laceration (location) right forearm. Length in cm: 6 Wound type: Curved, Flap Neurovascular status: Sensory intact, Motor intact, Vascular intact Tendon involvement: Tendon intact Anesthesia: Lidocaine 1%, With bicarb Wound Preparation: Hibiclens, Irrigated copiously NS, Wound explored, To the base Skin layer closure: Nylon, Interrupted, Size #-0 - enter number (5-0) Other: Patient tolerated well, No complications, Neurovascular intact, Dressing applied, Tetanus UTD PD MEDICAL DECISION MAKING - ED course Complexity details: reviewed results, re-evaluated patient, considered differential, d/w patient ED course: 83 y/o male with a thin skin tear to the right forearm has suturing done at the bedside and tolerates this well. Departure - Departure Disposition: 01 Home, Self Care Clinical Impression: Laceration of right forearm Qualifiers: Encounter type: initial encounter Qualified Code(s): S51.811A - Laceration without foreign body of right forearm, initial encounter Condition: Stable Instructions: ED Laceration Ext Sutr Stap Tape Follow-Up: Marley Ellis MD [Primary Care Provider] - Comments: sutures should be removed in 7-10 days
[2018-08-11 09:06] VITALS: BP 174/93
== END 2018-08-11 10:17 | disposition home or self-care (01) ==
LOC: ED 08:41
DX: S51.811A Laceration without foreign body of right forearm, initial encounter (principal); W18.30XA Fall on same level, unspecified, initial encounter; W22.8XXA Striking against or struck by other objects, initial encounter; I48.91 Unspecified atrial fibrillation; Z79.01 Long term (current) use of anticoagulants; Z85.038 Personal history of other malignant neoplasm of large intestine
CPT/HCPCS: 12002; 99282; 99283

== ENCOUNTER 2018-08-21 15:40 | Outpatient (CLI) | payer MEDICARE, OTHER | END 2018-08-21 23:59 | disposition home or self-care (01) | LOC: LAB.WCP 15:40 | PROVIDERS: ATTEND Family Medicine | DX: S51.811A Laceration without foreign body of right forearm, initial encounter (principal) | CPT/HCPCS: 87070; 87075; 87147; 87186; 87205 ==

== ENCOUNTER 2018-11-27 11:51 | Outpatient (CLI) | payer MEDICARE, OTHER ==
[2018-11-27 19:23] LABS: ALBUMIN 4.1 g/dL (3.2-5.5); ALBUMIN/GLOBULIN RATIO 1.3 (1.0-2.2); BILIRUBIN,TOTAL 1.9 mg/dL (0.2-1.0); CREATININE 1.2 mg/dL (0.6-1.2); TOTAL PROTEIN 7.2 g/dL (6.7-8.2)
[2018-11-27 19:24] LABS: BASOPHILS % (AUTO) 0.6 %; EOSINOPHILS # (AUTO) 0.1 10^3/uL (0.0-0.7); EOSINOPHILS % (AUTO) 1.5 %; HGB - HEMOGLOBIN 15.1 g/dL (14.0-18.0); LYMPHOCYTES # (AUTO) 0.5 10^3/uL (1.5-3.5); MEAN CORPUSCULAR HEMOGLOBIN 32.6 pg (27.0-31.0); MEAN CORPUSCULAR HGB CONC 33.3 g/dL (32.0-36.0); MEAN PLATELET VOLUME 8.1 fL (7.4-11.4); MONOCYTES # (AUTO) 0.6 10^3/uL (0.0-1.0); MONOCYTES % (AUTO) 9.9 %; NEUTROPHILS # (AUTO) 4.7 10^3/uL (1.5-6.6); PLT - PLATELET COUNT 239 10^3/uL (130-450); RED BLOOD COUNT 4.64 10^6/uL (4.70-6.10); RED CELL DISTRIBUTION WIDTH 15.1 % (12.0-15.0); WHITE BLOOD COUNT 5.9 x10^3/uL (4.8-10.8)
== END 2018-11-27 11:52 | disposition home or self-care (01) ==
LOC: LAB.WCP 11:51
PROVIDERS: ATTEND Family Medicine
DX: G62.9 Polyneuropathy, unspecified (principal); F41.8 Other specified anxiety disorders; I10 Essential (primary) hypertension
CPT/HCPCS: 36415; 80053; 82607; 82746; 84443; 85025

== ENCOUNTER 2019-07-03 07:00 | Outpatient (CLI) | payer MEDICARE, OTHER ==
[2019-07-03 19:00] LABS: BASOPHILS % (AUTO) 0.5 %; EOSINOPHILS # (AUTO) 0.1 10^3/uL (0.0-0.7); EOSINOPHILS % (AUTO) 1.5 %; LYMPHOCYTES # (AUTO) 0.6 10^3/uL (1.5-3.5); LYMPHOCYTES % (AUTO) 9.7 %; MEAN CORPUSCULAR HEMOGLOBIN 33.3 pg (27.0-31.0); MEAN CORPUSCULAR HGB CONC 32.7 g/dL (32.0-36.0); MEAN PLATELET VOLUME 10.6 fL (7.4-11.4); MONOCYTES # (AUTO) 0.6 10^3/uL (0.0-1.0); MONOCYTES % (AUTO) 10.1 %; NEUTROPHILS # (AUTO) 4.6 10^3/uL (1.5-6.6); NEUTROPHILS % (AUTO) 77.7 %; PLT - PLATELET COUNT 226 10^3/uL (130-450); RED CELL DISTRIBUTION WIDTH 14.3 % (12.0-15.0)
[2019-07-03 19:17] LABS: ALBUMIN/GLOBULIN RATIO 1.3 (1.0-2.2); BILIRUBIN,TOTAL 1.9 mg/dL (0.2-1.0); CALCIUM 8.7 mg/dL (8.5-10.3); CREATININE 1.2 mg/dL (0.6-1.2); TOTAL PROTEIN 7.2 g/dL (6.7-8.2)
== END 2019-07-03 23:49 | disposition home or self-care (01) ==
LOC: LAB.WCP 07:00
PROVIDERS: ATTEND Family Medicine
DX: I50.9 Heart failure, unspecified (principal)
CPT/HCPCS: 36415; 80053; 85025

== ENCOUNTER 2019-07-11 14:17 | Outpatient (CLI) | payer MEDICARE, OTHER ==
--- NOTE | 2019-07-15 11:48 | Ultrasound Report ---
Reason: ANKLE ULCER Procedure Date: 07/11/2019 Accession Number: [id number] / [id number] Procedure: US - Duplex Lwr Ext Arterial LT CPT Code: Final Report FULL RESULT: EXAM: LEFT LOWER EXTREMITY ARTERIAL DOPPLER ULTRASOUND EXAM DATE: 07/11/2019 03:38 PM. CLINICAL HISTORY: Ankle ulcer. COMPARISON: DUPLEX LWR EXT ARTERIAL LT 07/11/2019 2:38 PM. TECHNIQUE: Real-time sonographic vascular imaging was performed by the manifest/order organizer print orders, utilizing color-flow, Doppler flow, and spectral analysis. Multiple sales representative advertising static images were saved for review. FINDINGS: Mild plaque of the common femoral artery. There is no significant velocity elevation to indicate hemodynamically significant stenosis. Normal triphasic waveforms noted through the popliteal artery with patent biphasic waveforms of the trifurcation vessels. WORKSHEET DATA Left Lower Extremity: DIRECTOR OF MATERIALS MANAGEMENT: PSV 116 cm/sec, triphasic waveform. PSFA: PSV 77 cm/sec, triphasic waveform. SFA Mid: PSV 75 cm/sec, triphasic waveform. SFA Dist: PSV 92 cm/sec, triphasic waveform. PFA: PSV 71 cm/sec, triphasic waveform. Popliteal: PSV 75 cm/sec, triphasic waveform. SIMONE: PSV 82 cm/sec, biphasic waveform. OVERHEAD LINE WORKER: PSV 29 cm/sec, biphasic waveform. PER: PSV 72 cm/sec, biphasic waveform. Dorsalis Pedis: PSV 34 cm/sec, biphasic waveform. IMPRESSION: No evidence of hemodynamically significant stenosis. RADIA
== END 2019-07-11 14:18 | disposition home or self-care (01) ==
LOC: DI 14:17
PROVIDERS: ATTEND Family Medicine
DX: L97.329 Non-pressure chronic ulcer of left ankle with unspecified severity (principal)

== ENCOUNTER 2019-11-21 10:20 | Outpatient (CLI) | payer MEDICARE, OTHER ==
[2019-11-21 12:09] LABS: HGB - HEMOGLOBIN 14.8 g/dL (14.0-18.0); MEAN CORPUSCULAR HEMOGLOBIN 31.7 pg (27.0-31.0); MEAN CORPUSCULAR HGB CONC 32.2 g/dL (32.0-36.0); MEAN CORPUSCULAR VOLUME 98.3 fL (80.0-94.0); MEAN PLATELET VOLUME 10.2 fL (7.4-11.4); RED BLOOD COUNT 4.67 10^6/uL (4.70-6.10); RED CELL DISTRIBUTION WIDTH 13.8 % (12.0-15.0); WHITE BLOOD COUNT 5.5 x10^3/uL (4.8-10.8)
[2019-11-21 12:15] LABS: CALCIUM 8.6 mg/dL (8.5-10.3); CREATININE 1.2 mg/dL (0.6-1.2)
== END 2019-11-21 23:59 | disposition home or self-care (01) ==
LOC: LAB.WCP 10:20
PROVIDERS: ATTEND Family Medicine
DX: I10 Essential (primary) hypertension (principal)
CPT/HCPCS: 36415; 80048; 80053; 80061; 83721; 84443; 85025; 85027

== ENCOUNTER 2021-02-13 09:33 | Outpatient (CLI) | payer MEDICARE, OTHER ==
[2021-02-13 13:48] LABS: BASOPHILS % (AUTO) 0.7 %; EOSINOPHILS # (AUTO) 0.1 10^3/uL (0.0-0.7); EOSINOPHILS % (AUTO) 0.9 %; HCT - HEMATOCRIT 45.3 % (42.0-52.0); HGB - HEMOGLOBIN 14.7 g/dL (14.0-18.0); LYMPHOCYTES # (AUTO) 0.5 10^3/uL (1.5-3.5); LYMPHOCYTES % (AUTO) 9.1 %; MEAN CORPUSCULAR HEMOGLOBIN 32.5 pg (27.0-31.0); MEAN CORPUSCULAR HGB CONC 32.5 g/dL (32.0-36.0); MEAN CORPUSCULAR VOLUME 100.2 fL (80.0-94.0); MEAN PLATELET VOLUME 10.5 fL (7.4-11.4); MONOCYTES # (AUTO) 0.7 10^3/uL (0.0-1.0); MONOCYTES % (AUTO) 12.2 %; NEUTROPHILS # (AUTO) 4.3 10^3/uL (1.5-6.6); NEUTROPHILS % (AUTO) 76.6 %; PLT - PLATELET COUNT 252 10^3/uL (130-450); RED BLOOD COUNT 4.52 10^6/uL (4.70-6.10); RED CELL DISTRIBUTION WIDTH 13.7 % (12.0-15.0); WHITE BLOOD COUNT 5.6 x10^3/uL (4.8-10.8)
[2021-02-13 14:05] LABS: ALBUMIN 3.8 g/dL (3.2-5.5); ALBUMIN/GLOBULIN RATIO 1.4 (1.0-2.2); ALKALINE PHOSPHATASE 65 IU/L (42-121); ALT ALANINE AMINOTRANSFERASE 22 IU/L (10-60); AST ASPARTATE AMINOTRANSFERASE 15 IU/L (10-42); BILIRUBIN,TOTAL 1.7 mg/dL (0.2-1.0); BUN - BLOOD UREA NITROGEN 20 mg/dL (6-20); CALCIUM 8.7 mg/dL (8.5-10.3); CARBON DIOXIDE - CO2 28 mmol/L (21-32); CHLORIDE 106 mmol/L (101-111); CHOL/HDL RATIO 2.8 (<5.0); CHOLESTEROL 158 mg/dL; CREATININE 1.1 mg/dL (0.6-1.2); GFR - MDRD 63 (>89); GLUCOSE 98 mg/dL (70-100); HDL CHOLESTEROL 57 mg/dL; LDL CHOLESTEROL,CALCULATED 86 mg/dL; LDL/HDL RATIO 1.5 (<3.6); POTASSIUM 3.9 mmol/L (3.5-5.0); SODIUM 143 mmol/L (135-145); TOTAL PROTEIN 6.6 g/dL (6.7-8.2); TRIGLYCERIDES 77 mg/dL; VLDL CHOLESTEROL 15 mg/dL
[2021-02-13 14:15] LABS: THYROID STIMULATING HORMONE 1.93 uIU/mL (0.34-5.60)
== END 2021-02-13 09:34 | disposition home or self-care (01) ==
LOC: LAB.N 09:33
PROVIDERS: ATTEND Internal Medicine
DX: I11.0 Hypertensive heart disease with heart failure (principal); I50.9 Heart failure, unspecified; I48.0 Paroxysmal atrial fibrillation; G31.84 Mild cognitive impairment of uncertain or unknown etiology
CPT/HCPCS: 36415; 80053; 80061; 82607; 83721; 84443; 85025

== ENCOUNTER 2021-08-13 08:00 | Outpatient (CLI) | payer MEDICARE, OTHER ==
[2021-08-13 18:08] LABS: BASOPHILS % (AUTO) 0.5 %; EOSINOPHILS # (AUTO) 0.2 10^3/uL (0.0-0.7); EOSINOPHILS % (AUTO) 4.6 %; HGB - HEMOGLOBIN 13.6 g/dL (14.0-18.0); LYMPHOCYTES # (AUTO) 0.3 10^3/uL (1.5-3.5); LYMPHOCYTES % (AUTO) 6.8 %; MEAN CORPUSCULAR HEMOGLOBIN 33.1 pg (27.0-31.0); MEAN CORPUSCULAR HGB CONC 32.4 g/dL (32.0-36.0); MEAN CORPUSCULAR VOLUME 102.2 fL (80.0-94.0); MEAN PLATELET VOLUME 11.3 fL (7.4-11.4); MONOCYTES # (AUTO) 0.4 10^3/uL (0.0-1.0); MONOCYTES % (AUTO) 9.6 %; NEUTROPHILS # (AUTO) 3.4 10^3/uL (1.5-6.6); NEUTROPHILS % (AUTO) 78.3 %; PLT - PLATELET COUNT 207 10^3/uL (130-450); RED BLOOD COUNT 4.11 10^6/uL (4.70-6.10); RED CELL DISTRIBUTION WIDTH 14.9 % (12.0-15.0); WHITE BLOOD COUNT 4.4 x10^3/uL (4.8-10.8)
[2021-08-13 18:37] LABS: THYROID STIMULATING HORMONE 4.31 uIU/mL (0.34-5.60)
[2021-08-13 19:05] LABS: ALBUMIN 3.4 g/dL (3.2-5.5); ALBUMIN/GLOBULIN RATIO 1.1 (1.0-2.2); ALKALINE PHOSPHATASE 57 IU/L (42-121); ALT ALANINE AMINOTRANSFERASE 24 IU/L (10-60); AST ASPARTATE AMINOTRANSFERASE 19 IU/L (10-42); BILIRUBIN,TOTAL 2.1 mg/dL (0.2-1.0); BUN - BLOOD UREA NITROGEN 44 mg/dL (6-20); CALCIUM 8.9 mg/dL (8.5-10.3); CARBON DIOXIDE - CO2 27 mmol/L (21-32); CHLORIDE 109 mmol/L (101-111); CHOL/HDL RATIO 2.3 (<5.0); CHOLESTEROL 137 mg/dL; CREATININE 1.8 mg/dL (0.6-1.2); GFR - MDRD 36 (>89); GLUCOSE 85 mg/dL (70-100); HDL CHOLESTEROL 60 mg/dL; LDL CHOLESTEROL,CALCULATED 65 mg/dL; LDL/HDL RATIO 1.1 (<3.6); POTASSIUM 4.3 mmol/L (3.5-5.0); SODIUM 148 mmol/L (135-145); TOTAL PROTEIN 6.6 g/dL (6.7-8.2); TRIGLYCERIDES 62 mg/dL; VLDL CHOLESTEROL 12 mg/dL
== END 2021-08-13 23:59 | disposition home or self-care (01) ==
LOC: LAB.WCP 08:00
PROVIDERS: ATTEND Internal Medicine
DX: I48.0 Paroxysmal atrial fibrillation (principal); I10 Essential (primary) hypertension; G62.9 Polyneuropathy, unspecified; I42.9 Cardiomyopathy, unspecified
CPT/HCPCS: 36415; 80053; 80061; 82607; 83036; 83721; 83880; 84443; 85025

== ENCOUNTER 2021-08-29 14:40 | Outpatient (CLI) | payer MEDICARE, OTHER | END 2021-08-29 14:41 | disposition critical access hospital (66) | LOC: EMS 14:40 | DX: R41.0 Disorientation, unspecified (principal); R53.1 Weakness | CPT/HCPCS: A0425; A0429 ==

== ENCOUNTER 2021-08-29 14:54 | Inpatient (IN) | payer MEDICARE, OTHER ==
--- NOTE | 2021-08-29 15:25 | ED Physician Documentation ---
PD HPI ALTERED MENTAL STATUS - Stated complaint Stated Complaint: CONFUSION - Chief complaint Chief Complaint: General - History obtained from History obtained from: Patient, Family ( by phone), EMS - Additional information Additional information: Patient with dementia comes in with increased confusion over the last few days. He's not taking his meds. He is not caring for his ostomy. History is limited from the patient because of his confusion and dementia. Review of Systems Unable to obtain: Confused, Dementia PD PAST MEDICAL HISTORY - Past Medical History Cardiovascular: Congestive heart failure, Hypertension, Atrial fibrillation Respiratory: None Neuro: None, Peripheral neuropathy, Fainting Endocrine/Autoimmune: None GI: 21 : None, Benign prostate hypertrophy HEENT: Chronic vision loss Psych: Depression, Anxiety Musculoskeletal: None Derm: Eczema - Past Surgical History Past Surgical History: Yes General: Colonoscopy, Other - Present Medications Home Medications: Ambulatory Orders Medication Instructions Recorded Confirmed Finasteride 5 mg PO QPM 07/27/18 08/23/18 Apixaban [Eliquis] 2.5 mg PO BID #60 tablet 07/29/18 08/23/18 Metoprolol Succinate 100 mg PO BID #60 tab.er.24h 07/29/18 08/23/18 Spironolactone [Aldactone] 25 mg PO DAILY #30 tablet 07/29/18 08/23/18 hydrALAZINE [Apresoline] 10 mg PO BID #60 tablet 07/29/18 08/23/18 Clindamycin HCl [Clindamycin 300MG 300 mg PO QID 08/23/18 08/23/18 CAP] Cyanocobalamin (Vitamin B-12) 500 mcg PO DAILY 08/23/18 08/23/18 [Vitamin B-12 (500 mcg sublingual)] Ergocalciferol [Vitamin D2] 1 tab PO DAILY 08/23/18 08/23/18 Ferrous Gluconate 1 tab PO DAILY 08/23/18 08/23/18 Folic Acid 1 tab PO DAILY 08/23/18 08/23/18 - Allergies Allergies/Adverse Reactions: Allergies Allergy/AdvReac Type Severity Reaction Status Date / Time Penicillins Allergy Intermediate Hives Verified 08/29/21 15:05 - Social History Does the pt smoke?: No Smoking Status: Never smoker Does the pt drink ETOH?: Yes Does the pt have substance abuse?: No - Family History Family history: reports: Non contributory - Immunizations Immunizations are current?: Yes - POLST Patient has POLST: No PD ED PE NORMAL - Vitals Vital signs reviewed: Yes - General General: Other (Alert, O to person only) - HEENT HEENT: PERRL, EOMI - Neck Neck: Supple, no meningeal sign, No bony TTP - Cardiac Cardiac: RRR, No murmur - Respiratory Respiratory: No respiratory distress, Clear bilaterally - Abdomen Abdomen: Normal bowel sounds, Soft, Non tender, Other (Ostomy L side) - Back Back: No CVA TTP, No spinal TTP - Derm Derm: Normal color, Warm and dry - Extremities Extremities: No edema, No calf tenderness / cord - Neuro Neuro: No motor deficit, No sensory deficit Eye Opening: Spontaneous Motor: Obeys Commands Verbal: Confused GCS Score: 14 Results - Vitals Vitals: Vital Signs - 24 hr 08/29/21 15:02 Temperature 36.1 C L Heart Rate 62 Respiratory 16 Rate Blood Pressure 141/91 H O2 Saturation 99 Oxygen O2 Source Room air - Labs Labs: Laboratory Tests 08/29/21 08/29/21 15:57 15:57 WBC 3.7 L RBC 4.24 L Hgb 14.2 Hct 42.9 MCV 101.2 H MCH 33.5 H MCHC 33.1 RDW 15.8 H Plt Count 105 L MPV 11.2 Neut # (Auto) 3.0 Lymph # (Auto) 0.3 L [place] # (Auto) 0.3 Eos # (Auto) 0.1 Baso # (Auto) 0.0 Absolute Nucleated RBC 0.00 Nucleated RBC % 0.0 Sodium 145 Potassium 4.5 Chloride 107 Carbon Dioxide 27 Anion Gap 11.0 BUN 49 H Creatinine 2.0 H Estimated GFR (MDRD) 32 L Glucose 87 Calcium 8.9 Magnesium 2.4 Total Bilirubin 1.6 H AST 43 H ALT 40 Alkaline Phosphatase 80 Total Protein 6.4 L Albumin 3.3 Globulin 3.1 Albumin/Globulin Ratio 1.1 Lipase 28 - Rads (name of study) CT Head Radiology: EMP read contemporaneously (No acute disease, microvascular and age- related disease and a left basal ganglia infarct) PD MEDICAL DECISION MAKING - ED course ED course: Patient arrives by ambulance with reportedly increased confusion over the last few days, he is not taking care of his ostomy. I called the at home and she wondered about hospice. That said when we discussed this she really did not have a good grasp of what hospice was. Social work became involved and talked with the . His labs are notable for MARY ANN due to prerenal azotemia and as such the hospitalist, Dr. Coopersef agreed to observe with IV fluids and serial labs to make sure that is getting better pending disposition tomorrow. Departure - Departure Disposition: ED Place in Observation Clinical Impression: MARY ANN (acute kidney injury), Prerenal azotemia Dementia Qualifiers: Dementia type: unspecified type Dementia behavioral disturbance: with behavioral disturbance Qualified Code(s): F03.91 - Unspecified dementia with behavioral disturbance Condition: Stable
--- NOTE | 2021-08-29 15:47 | XRAY Report ---
PROCEDURE: Chest 1 View X-Ray INDICATIONS: confusion TECHNIQUE: One view of the chest was acquired. COMPARISON: 07/27/2018 FINDINGS: Surgical changes and devices: None. Lungs and pleura: Diffuse bilateral perihilar airspace opacities are present, similar to a remote x- ray on 07/27/2018 but now there is a superimposed right lower lobe infiltrate. Mediastinum: Mediastinal contours appear normal. Heart size is mildly enlarged. The aorta is tortu ous. Bones and chest wall: No suspicious bony lesions. Overlying soft tissues appear unremarkable. IMPRESSION: 1. Right lower lobe infiltrate consistent with atelectasis or pneumonia. 2. Mild cardiomegaly unchanged. Reviewed by: Cricket Servin on 08/29/2021 2:45 PM [place] Approved by: Cricket Servin on 08/29/2021 2:45 PM [place] Station ID: [id number]
--- NOTE | 2021-08-29 15:50 | CT Report ---
PROCEDURE: HEAD WO INDICATIONS: confusion TECHNIQUE: Noncontrast 4.5 mm thick angled axial sections acquired from the foramen magnum to the vertex. For r adiation dose reduction, the following was used: automated exposure control, adjustment of mA and/or kV according to patient size. COMPARISON: None. FINDINGS: Image quality: Excellent. CSF spaces: Basal cisterns are patent. No extra-axial fluid collections. Ventricles are normal in size and shape. Brain: No midline shift. No intracranial masses or hemorrhage. A cavum septum pellucidum is noted. This is an incidental finding. Atkins-white matter interface is normal. Subcortical and periventricula r hypodensities are consistent with microvascular ischemic disease. Microvascular ischemic disease an d age-related cerebral volume loss. There is an 8 mm lacunar infarct in the left basal ganglia. Skull and face: Calvarium and visualized facial bones are intact, without suspicious lesions. Sinuses: Visualized sinuses and mastoids are clear. IMPRESSION: 1. No acute intracranial abnormality. 2. Microvascular ischemic disease and age-related cerebral volume loss. 3. Left basal ganglia lacunar infarct. Reviewed by: Cricket Servin on 08/29/2021 2:48 PM [place] Approved by: Cricket Servin on 08/29/2021 2:48 PM [facility] Station ID: [id number]
[2021-08-29 16:03] LABS: BASOPHILS % (AUTO) 0.3 %; EOSINOPHILS # (AUTO) 0.1 10^3/uL (0.0-0.7); EOSINOPHILS % (AUTO) 3.8 %; HCT - HEMATOCRIT 42.9 % (42.0-52.0); HGB - HEMOGLOBIN 14.2 g/dL (14.0-18.0); LYMPHOCYTES # (AUTO) 0.3 10^3/uL (1.5-3.5); LYMPHOCYTES % (AUTO) 6.7 %; MEAN CORPUSCULAR HEMOGLOBIN 33.5 pg (27.0-31.0); MEAN CORPUSCULAR HGB CONC 33.1 g/dL (32.0-36.0); MEAN CORPUSCULAR VOLUME 101.2 fL (80.0-94.0); MEAN PLATELET VOLUME 11.2 fL (7.4-11.4); MONOCYTES # (AUTO) 0.3 10^3/uL (0.0-1.0); MONOCYTES % (AUTO) 8.6 %; NEUTROPHILS % (AUTO) 80.3 %; PLT - PLATELET COUNT 105 10^3/uL (130-450); RED BLOOD COUNT 4.24 10^6/uL (4.70-6.10); RED CELL DISTRIBUTION WIDTH 15.8 % (12.0-15.0); WHITE BLOOD COUNT 3.7 x10^3/uL (4.8-10.8)
[2021-08-29 16:15] LABS: ALBUMIN 3.3 g/dL (3.2-5.5); ALBUMIN/GLOBULIN RATIO 1.1 (1.0-2.2); BILIRUBIN,TOTAL 1.6 mg/dL (0.2-1.0); CALCIUM 8.9 mg/dL (8.5-10.3); MAGNESIUM 2.4 mg/dL (1.7-2.8); POTASSIUM 4.5 mmol/L (3.5-5.0); TOTAL PROTEIN 6.4 g/dL (6.7-8.2)
[2021-08-29] MEDS ORDERED: SODIUM CHLORIDE 0.9% 1,000 ML IV STA (16:40)
[2021-08-29 17:16] LABS: B. PARAPERTUSSIS- RESP PCR PAN NOT DETECTED; B. PERTUSSIS- RESP PCR PANEL NOT DETECTED; C. PNEUMONIAE- RESP PCR PANEL NOT DETECTED; CORONAVIRUS 229E-RESP PCR NOT DETECTED; CORONAVIRUS HKU1-RESP PCR NOT DETECTED; CORONAVIRUS NL63-RESP PCR NOT DETECTED; CORONAVIRUS OC43-RESP PCR NOT DETECTED; HUMAN METAPNEUMOVIRUS NOT DETECTED; INFLUENZA A- RESP PCR PANEL NOT DETECTED; INFLUENZA B - RESP PCR PANEL NOT DETECTED; M. PNEUMONIAE- RESP PCR PANEL NOT DETECTED; PARAINFLUENZA VIRUS 1 NOT DETECTED; PARAINFLUENZA VIRUS 2 NOT DETECTED; PARAINFLUENZA VIRUS 3 NOT DETECTED; PARAINFLUENZA VIRUS 4 NOT DETECTED; RHINOVIRUS/ENTEROVIRUS NOT DETECTED; RSV- RESP PCR PANEL NOT DETECTED; SARS-CoV-2 -RESP PCR PANEL NOT DETECTED
[2021-08-29] MEDS ORDERED: ACETAMINOPHEN 325 MG TABLET PO PRN (17:19)
[2021-08-29] MEDS ORDERED: ONDANSETRON ODT 4 MG TABLET TL PRN (17:19)
[2021-08-29] MEDS ORDERED: SODIUM CHLORIDE FLUSH 0.9% 10 ML SYRINGE IVP PRN (17:19)
[2021-08-29] MEDS ORDERED: ONDANSETRON 4 MG/2 ML VIAL IVP PRN (17:19)
[2021-08-29] MEDS ORDERED: LACTATED RINGERS 1,000 ML IV SCH (18:00)
--- NOTE | 2021-08-29 19:43 | HISTORY & PHYSICAL EXAMINATION ---
Chief Complaint - Chief Complaint Chief Complaint: altered mental status History of Present Illness - Admitted From [facility] - History Obtained From Records Reviewed: yes History obtained from: ED physician and records Exam Limitations: altered mental status - History of Present Illness HPI Comment/Other: "Patient with dementia comes in with increased confusion over the last few days. He's not taking his meds. He is not caring for his ostomy. History is limited from the patient because of his confusion and dementia." Patient was resting comfortably in bed at time of this visit. He is alert, oriented to self and place but not reason for presentation. He denied any co mplains. He denied chest pain, dyspnea, abdominal pain, nausea, vomiting, fever or chills. On exam bruises noted on upper thigh. Also has a skin tear on the dorsal surface of the left foot. History - Past Medical History Cardiovascular: reports: Congestive heart failure, Hypertension, Atrial fibrillation Respiratory: reports: None Neuro: reports: None, Peripheral neuropathy, Fainting Endocrine/Autoimmune: reports: None GI: : reports: None, Benign prostate hypertrophy HEENT: reports: Chronic vision loss Psych: reports: Depression, Anxiety Musculoskeletal: reports: None Derm: reports: Eczema MRSA Hx?: No - Past Surgical History General: reports: Colonoscopy, Other Other past surgical history: History of Anal cancer. Patient has colostomy in place. - Family & Social History Family History Comment/Other: Family and social history limited due to altered mental status Social History Notes: Lives at home with . - POLST Patient has POLST: No POLST Status: DNR Meds/Allgy - Home Medications Home Medications: Ambulatory Orders Medication Instructions Recorded Confirmed Finasteride 5 mg PO QPM 07/27/18 08/23/18 Apixaban [Eliquis] 2.5 mg PO BID #60 tablet 07/29/18 08/23/18 Metoprolol Succinate 100 mg PO BID #60 tab.er.24h 07/29/18 08/23/18 Spironolactone [Aldactone] 25 mg PO DAILY #30 tablet 07/29/18 08/23/18 hydrALAZINE [Apresoline] 10 mg PO BID #60 tablet 07/29/18 08/23/18 Clindamycin HCl [Clindamycin 300MG 300 mg PO QID 08/23/18 08/23/18 CAP] Cyanocobalamin (Vitamin B-12) 500 mcg PO DAILY 08/23/18 08/23/18 [Vitamin B-12 (500 mcg sublingual)] Ergocalciferol [Vitamin D2] 1 tab PO DAILY 08/23/18 08/23/18 Ferrous Gluconate 1 tab PO DAILY 08/23/18 08/23/18 Folic Acid 1 tab PO DAILY 08/23/18 08/23/18 - Allergies Allergies/Adverse Reactions: Allergies Allergy/AdvReac Type Severity Reaction Status Date / Time Penicillins Allergy Intermediate Hives Verified 08/29/21 15:05 Review of Systems - Constitutional Constitutional: denies: Fatigue, Fever, Chills - Eyes Eyes: denies: Pain - Ears, Nose & Throat Ears, Nose & Throat: denies: Ear pain, Sore throat - Cardiovascular Cariovascular: denies: Irregular heart rate, Palpitations, Chest pain, Edema - Respiratory Respiratory: denies: Cough, Wheezing, SOB at rest, SOB with exertion - Gastrointestinal Gastrointestinal: denies: Abdominal pain, Abdominal distention, Nausea, Vomiting, Coffee grounds emesis, Reflux/heartburn - Genitourinary Genitourinary: denies: Dysuria, Frequency, Urgency, Hematuria, Incontinence - Musculoskeletal Musculoskeletal: denies: Muscle pain, Back pain, Muscle aches - Integumentary Integumentary: denies: Rash, Pruritis, Lesions, Dryness - Neurological Neurological: denies: General weakness, Focal weakness, Headache, Dizziness - Psychiatric Psychiatric: denies: Depression, Anxiety - Endocrine Endocrine: denies: Polyuria, Polydypsia - Hematologic/Lymphatic Hematologic/Lymphatic: reports: Bruising. denies: Anemia Prior Level of Functionality: Patient lives with his and is dependent for activities of daily living Exam - Vital Signs Vital Signs: Vital Signs x48h Temp Pulse Resp BP Pulse Ox 08/29/21 15:02 36.1 C L 62 16 141/91 H 99 - Physical Exam General Appearance: positive: No acute distress, Alert, Other (Awake, oriented to time and place but not reason) Eyes Bilateral: positive: PERRL, EOMI ENT: positive: No signs of dehydration Neck: positive: No JVD, Trachea midline Respiratory: positive: Chest non-tender, No respiratory distress, Breath sounds nml. negative: Wheezes, Rales, Rhonchi Cardiovascular: positive: Regular rate & rhythm, No murmur Abdomen: positive: Non-tender, No organomegaly, Nml bowel sounds, No distention. negative: Guarding, Rebound Back: positive: Nml inspection Skin: positive: No rash, Warm, Dry, Other (bruise on left thigh. Skin tear on left foot and thigh) Extremities: positive: Full ROM, Nml appearance, Pedal edema (2+ edema) Neurologic/Psychiatric: positive: Oriented x3, Mood/affect nml Conclusion/Plan - Problem List (1) Altered mental status Conclusion/Plan: Patient has dementia at baseline. However AMS thought to be acutely worsened by dehydration Patient was given a total of 1L of normal saline. Will hold off on any further IV hydration (2) MARY ANN (acute kidney injury) Conclusion/Plan: Cr 2.0, BUN 49 with eGFR 32 Patient received 1L of normal saline Fluid held due to lower extremity edema (3) CHF (congestive heart failure) Conclusion/Plan: Not in exacerbation Will hold patient's spironolactone for now Continue metoprolol succinate once verified (4) Dementia Conclusion/Plan: Not on any medication. No behavioral disturbances. Qualifiers: Dementia type: unspecified type Dementia behavioral disturbance: with behavioral disturbance Qualified Code(s): F03.91 - Unspecified dementia with behavioral disturbance (5) Atrial fibrillation Conclusion/Plan: On metoprolol succinate and Eliquis Qualifiers: Atrial fibrillation type: persistent (6) BPH (benign prostatic hyperplasia) Conclusion/Plan: On finasteride 5 mg p.o. every afternoon. (7) HTN (hypertension) Conclusion/Plan: On metoprolol, hydralazine and spironolactone. Spironolactone held for now Qualifiers: Hypertension type: essential hypertension Qualified Code(s): I10 - Essential (primary) hypertension - Lab Results Fish Bones: 08/29/21 15:57 08/29/21 15:57 Core Measures - Anticipated LOS I expect patient to be DC'd or transferred within 96 hours.: Yes - DVT/VTE - Prophylaxis VTE/DVT Device ordered at admit?: Yes VTE/DVT Prophylaxis med ordered at admit?: Yes
[2021-08-30] MEDS: SODIUM CHLORIDE FLUSH 0.9% 10 ML SYRINGE IVP SCH ×3 (03:26→18:01)
[2021-08-30 05:54] LABS: BASOPHILS % (AUTO) 0.2 %; EOSINOPHILS # (AUTO) 0.1 10^3/uL (0.0-0.7); EOSINOPHILS % (AUTO) 2.4 %; HCT - HEMATOCRIT 42.1 % (42.0-52.0); LYMPHOCYTES # (AUTO) 0.2 10^3/uL (1.5-3.5); LYMPHOCYTES % (AUTO) 5.6 %; MEAN CORPUSCULAR HEMOGLOBIN 33.3 pg (27.0-31.0); MEAN CORPUSCULAR HGB CONC 33.3 g/dL (32.0-36.0); MEAN CORPUSCULAR VOLUME 100.2 fL (80.0-94.0); MEAN PLATELET VOLUME 11.1 fL (7.4-11.4); MONOCYTES # (AUTO) 0.3 10^3/uL (0.0-1.0); MONOCYTES % (AUTO) 8.2 %; NEUTROPHILS # (AUTO) 3.4 10^3/uL (1.5-6.6); NEUTROPHILS % (AUTO) 83.1 %; PLT - PLATELET COUNT 100 10^3/uL (130-450); RED CELL DISTRIBUTION WIDTH 15.5 % (12.0-15.0); WHITE BLOOD COUNT 4.1 x10^3/uL (4.8-10.8)
[2021-08-30 06:30] LABS: CALCIUM 8.8 mg/dL (8.5-10.3); CREATININE 1.9 mg/dL (0.6-1.2); POTASSIUM 4.9 mmol/L (3.5-5.0)
[2021-08-30] MEDS: cefTRIAXone 1 GM in SODIUM CHLORIDE 0.9% MINIBAG 100 ML IV SCH (09:28)
[2021-08-30] MEDS: AZITHROMYCIN INJ 500 MG in SODIUM CHLORIDE 0.9% 250 ML IV SCH (10:33)
[2021-08-30] MEDS: DEXTROSE 5%-0.45% NACL 1,000 ML IV SCH (15:12)
--- NOTE | 2021-08-30 19:27 | PROVIDER PROGRESS NOTE ---
Subjective - Prog Note Date Prog Note Date: 08/30/21 - Subjective Subjective: He remains confused. He does not know where he is. He is oriented to self. is present at bedside. He denies shortness of breath or chest pain. Current Medications - Current Medications Current Medications: Active Medications Acetaminophen (Acetaminophen 325 Mg Tablet) 650 mg PO Q4HR PRN PRN Reason: Pain 1 to 4 Ceftriaxone Sodium 1 gm/ (Sodium Chloride) 100 mls @ 200 mls/hr IV DAILY [facility] Last Infusion: 08/30/21 10:15 Dose: Infused Documented by: Azithromycin 500 mg/ Sodium (Chloride) 250 mls @ 250 mls/hr IV DAILY [facility] Stop: 09/01/21 09:59 Last Infusion: 08/30/21 11:40 Dose: Infused Documented by: Dextrose/Sodium Chloride (D5.45ns) 1,000 mls @ 83.333 mls/hr IV .Q12H [facility] Last Admin: 08/30/21 15:12 Dose: 83.333 mls/hr Documented by: Ondansetron HCl (Ondansetron Odt 4 Mg Tablet) 4 mg TL Q6HR PRN PRN Reason: Nausea / Vomiting Ondansetron HCl (Ondansetron 4 Mg/2 Ml Vial) 4 mg IVP Q6HR PRN PRN Reason: Nausea / Vomiting Sodium Chloride (Sodium Chloride Flush 0.9% 10 Ml Syringe) 10 ml IVP PRN PRN PRN Reason: NEEDED PER PROVIDER ORDERS Sodium Chloride (Sodium Chloride Flush 0.9% 10 Ml Syringe) 10 ml IVP 0100,0900,1700 [facility] Last Admin: 08/30/21 18:01 Dose: Not Given Documented by: Finasteride 5 mg PO QPM 07/27/18 Clindamycin HCl [Clindamycin 300MG CAP] 300 mg PO QID 08/23/18 Cyanocobalamin (Vitamin B-12) [Vitamin B-12 (500 mcg sublingual)] 500 mcg PO DAILY 08/23/18 Ergocalciferol [Vitamin D2] 1 tab PO DAILY 08/23/18 Ferrous Gluconate 1 tab PO DAILY 08/23/18 Folic Acid 1 tab PO DAILY 08/23/18 Objective - Vital Signs/Intake & Output Reviewed Vital Signs: Yes Vital Signs: Vital Signs x48h Temp Pulse Resp BP Pulse Ox 08/30/21 15:43 36.4 C L 80 16 111/73 100 08/30/21 13:00 36.4 C L Intake & Output: Intake & Output 08/27/21 08/28/21 08/29/21 08/30/21 23:59 23:59 23:59 23:59 Intake Total 1650 1190 Output Total 200 Balance 1650 990 - Objective General Appearance: positive: No acute distress, Alert Eyes Bilateral: positive: Normal inspection, Conjunctivae nml ENT: positive: ENT inspection nml Neck: positive: Nml inspection Respiratory: positive: No respiratory distress. negative: Wheezes Skin: positive: Warm, Dry Extremities: positive: Pedal edema (+1 edema in lower extremities.) Neurologic/Psychiatric: positive: Disoriented to place, Disoriented to time, Oth er (No obvious focal deficits.). negative: Disoriented to person - Lab Results Fish Bones: 08/30/21 05:35 08/30/21 05:35 Other Labs: Lab Results x24hrs 08/30/21 08/30/21 08/30/21 Range/Units 06:48 05:35 05:35 WBC (4.8-10.8) x10^3/uL RBC (4.70-6.10) 10^6/uL Hgb (14.0-18.0) g/dL Hct (42.0-52.0) % MCV (80.0-94.0) fL MCH (27.0-31.0) pg MCHC (32.0-36.0) g/dL RDW (12.0-15.0) % Plt Count (130-450) 10^3/uL MPV (7.4-11.4) fL Neut # (Auto) (1.5-6.6) 10^3/uL Lymph # (Auto) (1.5-3.5) 10^3/uL Graham # (Auto) (0.0-1.0) 10^3/uL Eos # (Auto) (0.0-0.7) 10^3/uL Baso # (Auto) (0.0-0.1) 10^3/uL Absolute Nucleated RBC x10^3/uL Nucleated RBC % /100WBC Sodium 150 H (135-145) mmol/L Potassium 4.9 (3.5-5.0) mmol/L Chloride 115 H (101-111) mmol/L Carbon Dioxide 23 (21-32) mmol/L Anion Gap 12.0 (6-13) BUN 49 H (6-20) mg/dL Creatinine 1.9 H (0.6-1.2) mg/dL Estimated GFR (MDRD) 34 L (>89) Glucose 72 (70-100) mg/dL Lactic Acid 1.1 (0.5-2.2) mmol/L Calcium 8.8 (8.5-10.3) mg/dL TSH 5.24 (0.34-5.60) uIU/mL 08/30/21 Range/Units 05:35 WBC 4.1 L (4.8-10.8) x10^3/uL RBC 4.20 L (4.70-6.10) 10^6/uL Hgb 14.0 (14.0-18.0) g/dL Hct 42.1 (42.0-52.0) % MCV 100.2 H (80.0-94.0) fL MCH 33.3 H (27.0-31.0) pg MCHC 33.3 (32.0-36.0) g/dL RDW 15.5 H (12.0-15.0) % Plt Count 100 L (130-450) 10^3/uL MPV 11.1 (7.4-11.4) fL Neut # (Auto) 3.4 (1.5-6.6) 10^3/uL Lymph # (Auto) 0.2 L (1.5-3.5) 10^3/uL Graham # (Auto) 0.3 (0.0-1.0) 10^3/uL Eos # (Auto) 0.1 (0.0-0.7) 10^3/uL Baso # (Auto) 0.0 (0.0-0.1) 10^3/uL Absolute Nucleated RBC 0.00 x10^3/uL Nucleated RBC % 0.0 /100WBC Sodium (135-145) mmol/L Potassium (3.5-5.0) mmol/L Chloride (101-111) mmol/L Carbon Dioxide (21-32) mmol/L Anion Gap (6-13) BUN (6-20) mg/dL Creatinine (0.6-1.2) mg/dL Estimated GFR (MDRD) (>89) Glucose (70-100) mg/dL Lactic Acid (0.5-2.2) mmol/L Calcium (8.5-10.3) mg/dL TSH (0.34-5.60) uIU/mL ABX Reporting Has patient been on IV antibiotics over the past 48 hours?: Yes Assessment/Plan - Problem List (1) Altered mental status Impression: Suspect this is likely due to worsening dementia. 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 This may potentially also be exacerbated by underlying infection. We have him on antibiotics for possible community- acquired pneumonia. (2) Community acquired pneumonia Impression: Concern was for potential right lower lobe infiltrate. He has no dyspnea cough or leukocytosis but given he was hypothermic last night and will confused than usual he felt it would be imperative to treat this as a suspected infection. He is now on ceftriaxone and azithromycin. Qualifiers: Laterality: right Lung location: lower lobe of lung Qualified Code(s): J18.9 - Pneumonia, unspecified organism (3) Dementia Impression: He has underlying dementia which appears to have progressed over the past few weeks to months. He has a POLST form which states a DNR with a focus of comfort measures. He also states he would not want IV antibiotics. I discussed this with his today but she feels too fatigued and tired to make a decision regarding his care. She is agreeable to meeting with palliative care and I have asked Isis Wets to meet with her tomorrow because based off of his POLST form, we should be focusing on his comfort and considering hospice which the seems open to but has had difficulty committing. Given this, we will continue with supportive measures for the time being which will include IV fluids and antibiotics. Qualifiers: Dementia type: unspecified type Dementia behavioral disturbance: with behavioral disturbance Qualified Code(s): F03.91 - Unspecified dementia with behavioral disturbance (4) Urinary retention Impression: This may also be contributing to his delirium. We will place a Andrew catheter and resume his Flomax. (5) Hypothermia Impression: He was hypothermic overnight which may be due to underlying infection. TSH was within normal limits. He was rewarmed and his temperature has since been stable. There has been no evidence of hypoglycemia. We will continue antibiotics for underlying infection. (6) Hypernatremia Impression: He is hypernatremic this morning with a sodium of 150. This is likely secondary to saline he received and decreased free water intake. We will place him on D5 water with half-normal saline. Monitor labs. (7) MARY ANN (acute kidney injury) Impression: This may be due to. No injury or urinary retention. We will continue gentle IV hydration and place a Andrew catheter. Monitor renal function. Avoid nephrotoxins. (8) CHF (congestive heart failure) Impression: He has chronic systolic heart failure. Although he has lower extremity edema. He does not appear to be in heart failure. We are gently hydrated with D5 water and half-normal saline given the hyponatremia. Qualifiers: Heart failure type: systolic Heart failure chronicity: chronic Qualified Code(s): I50.22 - Chronic systolic (congestive) heart failure
[2021-08-31] MEDS: SODIUM CHLORIDE FLUSH 0.9% 10 ML SYRINGE IVP SCH ×4 (01:19→23:25)
[2021-08-31] MEDS: DEXTROSE 5%-0.45% NACL 1,000 ML IV SCH ×2 (03:20→18:44)
[2021-08-31 05:17] LABS: BASOPHILS % (AUTO) 0.1 %; EOSINOPHILS % (AUTO) 0.4 %; HCT - HEMATOCRIT 43.5 % (42.0-52.0); HGB - HEMOGLOBIN 14.2 g/dL (14.0-18.0); LYMPHOCYTES # (AUTO) 0.3 10^3/uL (1.5-3.5); LYMPHOCYTES % (AUTO) 3.2 %; MEAN CORPUSCULAR HGB CONC 32.6 g/dL (32.0-36.0); MEAN CORPUSCULAR VOLUME 101.2 fL (80.0-94.0); MEAN PLATELET VOLUME 12.7 fL (7.4-11.4); MONOCYTES # (AUTO) 0.5 10^3/uL (0.0-1.0); NEUTROPHILS # (AUTO) 6.9 10^3/uL (1.5-6.6); NEUTROPHILS % (AUTO) 89.9 %; NRBC ABSOLUTE COUNT (AUTO) 0.02 x10^3/uL; NUCLEATED RED BLOOD CELLS AUTO 0.3 /100WBC; PLT - PLATELET COUNT 93 10^3/uL (130-450); WHITE BLOOD COUNT 7.7 x10^3/uL (4.8-10.8)
[2021-08-31 05:31] LABS: CALCIUM 8.6 mg/dL (8.5-10.3); CREATININE 1.9 mg/dL (0.6-1.2); POTASSIUM 4.6 mmol/L (3.5-5.0)
[2021-08-31] MEDS: TAMSULOSIN 0.4 MG CAPSULE PO SCH (08:27)
[2021-08-31] MEDS: cefTRIAXone 1 GM in SODIUM CHLORIDE 0.9% MINIBAG 100 ML IV SCH (10:20)
[2021-08-31] MEDS: AZITHROMYCIN INJ 500 MG in SODIUM CHLORIDE 0.9% 250 ML IV SCH (11:41)
--- NOTE | 2021-08-31 12:04 | PROVIDER PROGRESS NOTE ---
Assessment/Plan - Problem List (1) Altered mental status Assessment/Plan: He is oriented to self, not place or time (he keeps repeating that he is "in his sisters hotel"). He did remember yesterday's provider, Dr. Kelly's name, however. Suspect this is likely due to worsening dementia. 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 Or this may potentially also be exacerbated by underlying infection. We have him on antibiotics for possible community- acquired pneumonia. A consult with Palliative Care provider, Issi West NP, is pending for today (2) Community acquired pneumonia Impression: He does describe being more short of breath today, his saturations are stable on room air. Concern was for potential right lower lobe infiltrate. He has mild dyspnea, but no cough or leukocytosis but given he remains hypothermic and more confused than usual, we felt it would be imperative to treat this as a suspected infection. He is now on ceftriaxone and azithromycin. Qualifiers: Laterality: right Lung location: lower lobe of lung Qualified Code(s): J18.9 - Pneumonia, unspecified organism (3) Dementia Impression: He has underlying dementia which appears to have progressed over the past few weeks to months. He has become agitated and impulsive/stubborn at home. He was also not taking care of his ostomy or eating adequately. He has a POLST form which states a DNR with a focus of comfort measures. A consult with Palliative Care provider, Isis West NP, is pending for today, to meet with the today because based off of his POLST form, we should be focusing on his comfort and considering Hospice which the seems open to, but has had difficulty committing to at admission. Given this, we will continue with supportive measures for the time being which will include IV fluids and antibiotics. Will start Seroquel at hs for the agitated dementia. Qualifiers: Dementia type: unspecified type Dementia behavioral disturbance: with behavioral disturbance Qualified Code(s): F03.91 - Unspecified dementia with behavioral disturbance (4) Urinary retention Impression: This may also be contributing to his delirium. We ordered a Andrew catheter and resumed his Flomax. (5) Hypothermia Impression: He has been hypothermic, despite getting a bear hugger, which may be due to underlying infection. TSH was within normal limits. There has been no evidence of hypoglycemia. We will continue antibiotics for underlying infection and bear hugger as needed. (6) Hypernatremia Impression: He is still hypernatremic, yesterday had a sodium of 150 and today 146. This is likely secondary to iv saline that he received and having had decreased free water intake. We started him on D5W with half-normal saline. Monitor BMP daily. (7) MARY ANN (acute kidney injury) Impression: This may be due to urinary retention. We will continue gentle IV hydration and place a Andrew catheter. Monitor BMP daily Avoid nephrotoxins. (8) CHF (congestive heart failure) Impression: He has chronic systolic heart failure. Although he has lower extremity edema. He does not appear to be in overt heart failure. We are gently hydrated with D5W 0.45 NS, given the hyponatremia. Qualifiers: Heart failure type: systolic Heart failure chronicity: chronic Qualified Code(s): I50.22 - Chronic systolic (congestive) heart failure - Current Meds Current Meds: Current Medications Generic Name Dose Route Start Last Admin Trade Name Melissa PRN Reason Stop Dose Admin Ceftriaxone Sodium 1 gm/ 100 mls @ 200 mls/hr 08/30/21 09:00 08/31/21 11:10 Sodium Chloride IV Infused DAILY MARY Infusion Azithromycin 500 mg/ Sodium 250 mls @ 250 mls/hr 08/30/21 09:00 08/31/21 11:41 Chloride IV 09/01/21 09:59 250 mls/hr DAILY MARY Administration Dextrose/Sodium Chloride 1,000 mls @ 83.333 mls/hr 08/30/21 13:00 08/31/21 11:42 D5.45ns IV 0 mls/hr .Q12H MARY Infusion Sodium Chloride 10 ml 08/30/21 01:00 08/31/21 11:09 Sodium Chloride Flush 0.9% 10 Ml Syringe IVP Not Given 0100,0900,1700 MARY Tamsulosin HCl 0.4 mg 08/31/21 09:00 08/31/21 08:27 Tamsulosin 0.4 Mg Capsule PO 0.4 mg DAILY MARY Administration - Lab Result Fish Bone Diagrams: 08/31/21 05:10 08/31/21 05:10 Subjective - Subjective Patient Reports: Resting Comfortably, Shortness of Breath Objective Vital Signs: Vital Signs - 24 hr 08/30/21 08/30/21 08/30/21 13:00 15:43 20:08 Temperature 36.4 C L 36.4 C L 35.0 C L Heart Rate [ 80 61 Brachial] Respiratory 16 24 Rate Blood Pressure 111/73 109/77 [Left Brachial artery] Blood Pressure [Right Brachial artery] O2 Saturation 100 100 08/31/21 08/31/21 08/31/21 02:30 05:06 09:14 Temperature 35.5 C L Heart Rate [ 72 61 Brachial] Respiratory 19 16 Rate Blood Pressure [Left Brachial artery] Blood Pressure 114/80 93/63 [Right Brachial artery] O2 Saturation 96 100 Oxygen O2 Source Room air I&O (Last 24 Hrs): Intake and Output Totals x24h 08/29/21 08/30/21 08/31/21 23:59 23:59 23:59 Intake Total 1650 8556.143 8168.221 Output Total 1075 125 Balance 1650 765.581 1771.221 General: Alert, No acute distress, Other (Tall thin white male.) HEENT: Atraumatic, Mucous membr. moist/pink Neck: Supple, No JVD Neuro: Alert, Disoriented (He is oriented to self only, not place or time (thinks he is "in his [place] hotel").) Cardiovascular: Regular rate, No murmurs Respiratory: Breath sounds nml Abdomen: Soft Extremities: Other (2+ edema to mid-shins) - Results Results: Laboratory Results WBC 7.7 x10^3/uL (4.8-10.8) 08/31/21 05:10 RBC 4.30 10^6/uL (4.70-6.10) L 08/31/21 05:10 Hgb 14.2 g/dL (14.0-18.0) 08/31/21 05:10 Hct 43.5 % (42.0-52.0) 08/31/21 05:10 MCV 101.2 fL (80.0-94.0) H 08/31/21 05:10 MCH 33.0 pg (27.0-31.0) H 08/31/21 05:10 MCHC 32.6 g/dL (32.0-36.0) 08/31/21 05:10 RDW 16.0 % (12.0-15.0) H 08/31/21 05:10 Plt Count 93 10^3/uL (130-450) L 08/31/21 05:10 MPV 12.7 fL (7.4-11.4) H 08/31/21 05:10 Neut # (Auto) 6.9 10^3/uL (1.5-6.6) H 08/31/21 05:10 Lymph # (Auto) 0.3 10^3/uL (1.5-3.5) L 08/31/21 05:10 Mcnairy # (Auto) 0.5 10^3/uL (0.0-1.0) 08/31/21 05:10 Eos # (Auto) 0.0 10^3/uL (0.0-0.7) 08/31/21 05:10 Baso # (Auto) 0.0 10^3/uL (0.0-0.1) 08/31/21 05:10 Absolute Nucleated RBC 0.02 x10^3/uL 08/31/21 05:10 Nucleated RBC % 0.3 /100WBC 08/31/21 05:10 Sodium 146 mmol/L (135-145) H 08/31/21 05:10 Potassium 4.6 mmol/L (3.5-5.0) 08/31/21 05:10 Chloride 113 mmol/L (101-111) H 08/31/21 05:10 Carbon Dioxide 23 mmol/L (21-32) 08/31/21 05:10 Anion Gap 10.0 (6-13) 08/31/21 05:10 BUN 47 mg/dL (6-20) H 08/31/21 05:10 Creatinine 1.9 mg/dL (0.6-1.2) H 08/31/21 05:10 Estimated GFR (MDRD) 34 (>89) L 08/31/21 05:10 Glucose 119 mg/dL (70-100) H 08/31/21 05:10 Lactic Acid 1.1 mmol/L (0.5-2.2) 08/30/21 06:48 Calcium 8.6 mg/dL (8.5-10.3) 08/31/21 05:10 Magnesium 2.4 mg/dL (1.7-2.8) 08/29/21 15:57 Total Bilirubin 1.6 mg/dL (0.2-1.0) H 08/29/21 15:57 AST 43 IU/L (10-42) H 08/29/21 15:57 ALT 40 IU/L (10-60) 08/29/21 15:57 Alkaline Phosphatase 80 IU/L (42-121) 08/29/21 15:57 Total Protein 6.4 g/dL (6.7-8.2) L 08/29/21 15:57 Albumin 3.3 g/dL (3.2-5.5) 08/29/21 15:57 Globulin 3.1 g/dL (2.1-4.2) 08/29/21 15:57 Albumin/Globulin Ratio 1.1 (1.0-2.2) 08/29/21 15:57 Lipase 28 U/L (22-51) 08/29/21 15:57 TSH 5.24 uIU/mL (0.34-5.60) 08/30/21 05:35 Nasal Adenovirus (PCR) NOT DETECTED 08/29/21 16:10 Nasal B. parapertussis DNA (PCR) NOT DETECTED 08/29/21 16:10 Nasal Coronavir 229E PCR NOT DETECTED 08/29/21 16:10 Nasal Coronavir HKU1 PCR NOT DETECTED 08/29/21 16:10 Nasal Coronavir NL63 PCR NOT DETECTED 08/29/21 16:10 Nasal Coronavir OC43 PCR NOT DETECTED 08/29/21 16:10 Nasal Enterovir/Rhinovir PCR NOT DETECTED 08/29/21 16:10 Nasal Influenza B PCR NOT DETECTED 08/29/21 16:10 Nasal Influenza A PCR NOT DETECTED 08/29/21 16:10 Nasal Parainfluen 1 PCR NOT DETECTED 08/29/21 16:10 Nasal Parainfluen 2 PCR NOT DETECTED 08/29/21 16:10 Nasal Parainfluen 3 PCR NOT DETECTED 08/29/21 16:10 Nasal Parainfluen 4 PCR NOT DETECTED 08/29/21 16:10 Nasal RSV (PCR) NOT DETECTED 08/29/21 16:10 Nasal B.pertussis DNA PCR NOT DETECTED 08/29/21 16:10 Nasal C.pneumoniae (PCR) NOT DETECTED 08/29/21 16:10 Red Human Metapneumo PCR NOT DETECTED 08/29/21 16:10 Nasal M.pneumoniae (PCR) NOT DETECTED 08/29/21 16:10 Nasal SARS-CoV-2 (PCR) NOT DETECTED 08/29/21 16:10 - Procedures Procedures: Procedures ANAL BIOPSY (08/26/13) RIGID PROCTOSIGMOIDOSCOPY (08/26/13) VENOUS CATHETERIZATION NEC (01/31/13)
--- NOTE | 2021-08-31 14:51 | PHARMACY PROGRESS NOTE ---
- Best Possible Medication History Admit Date and Time: 08/30/21 1056 Processed by: Pharmacy Medication History completed: Yes Patient Interview: Completed Secondary Source(s): Physician records, Insurance records Patient slightly altered, so patient interview was challenging to get complete information. Patient says he has stopped taking medications per advice of his physician. Records in [facility] show an office visit on 08/12/[address] Ozuna where the physician documented that the patient stopped taking all of his home medications due to nose bleeds. The only medications the patient was willing to resume were his BPH meds, which is now reflected in the EMR. As the person ultimately responsible for medication therapy, providers are able to order a medication from an existing home medication list in [facility] via the "Reconcile Routine" prior to Confirmation of that medication by support technician. Such practice is discouraged except when the physician, in their clinical judgment, deems that a medical need exists for a medication without regard to previous use.
--- NOTE | 2021-08-31 17:14 | CONSULTATION NOTE ---
Palliative Care Consultation - Referral Referring Provider: Dr. Vasquez Kelly Time of Visit: Referral setting: Hospitalized patient Referral Reason: Dementia/FTT/protien calorie malnutrition/CHF/CAP - Information Sources Records reviewed: RN notes reviewed, Previous records reviewed History/Review of Systems obtained from: Patient, Family ( Evie;), Friend (neighbor Tejas providing collaborative information/observations) Exam limitations: Clinical condition (patient disorientated x 3; fluctuating AMS) - History of Present Illness Brief History of Present Illness: This is an 86-year-old gentleman who presents with failure to thrive, with noted weight loss, reports baseline weight 180, when he saw Dr. Hopper was 153, and today he presents at 143. Patient has stopped all his medications as of visit noted on 07/20 and this was confirmed again on 08/12/2020 suspect this is related to his worsening dementia. 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 This is confirmed by their neighbor Tejas who is present at the family visit, noting patient had had increasing weight loss, weakness, repetitive storytelling, and more confusion. This had escalated previous to his admission, patient's perception is he has been having "balance problems". He has had multiple falls over the last couple weeks, with noted bruises, left skin tear on dorsal part of foot, now with fluid blister. Patient is unable to describe why he is not eating, other than he is "full. Denies pain or discomfort with this, certainly suspect given patient's history of cancer/malignancy of concern. Patient's care needs have been increasing. When discussed with , reports he can be very stubborn, she does try to use distraction and humor, but can be verbally abusive when challenged, and less and less cooperative over the last couple weeks. He has not physically hurt her, though she has been wary of staying out of his reach when he is distressed. He had insisted on taking the garbage out which precipitated the fall leading to admit. is clearly overwhelmed, does sound like mostly related to his functional decline as well as his cognitive changes and being "more stubborn". Patient came in with suspected acquired pneumonia, with persistent hypothermia, and was started on ceftriaxone and azithromycin. His CT scan did show an old infarct but no acute abnormalities, but unclear if this is added to his cognitive decline overall. Patient did present with retention, does have a Whitney catheter, patient had been off his BPH drugs, at his 12-minute visit, had been encouraged to restart these. It also appears he has chronic systolic heart failure, with lower extremity edema, known atrial fib with RVR, and last echo noted ejection fraction of 35% and this was 3 years ago. Palliative care has been asked to meet with , as patient's POLST does reflect DN AR/allow natural as well as comfort measures, this was confirmed in his appointment it looks like with Dr. Hopper as far as not wanting to take his medications to treat any of his current health problems. I suspect this was more related to patient's worsening dementia. Patient presents with no understanding of his current situation or insight, is not oriented to place, did talk that his is "his main sail" but later called her sister, is unable to participate in any meaningful conversation regarding looking toward discharge disposition. Returns multiple times to his problem with balance, denies pain or discomfort, though appears to have been bedbound since he has come in. Patient does not present with decision-making capacity, this falls to his Hailey who is overwhelmed. She does have her friend Tejas who is her neighbor, who is helping her navigate the current situation. She has given permission for him to participate and assist with this during our visit. Medical/Surgical History - Past Medical History Cardiovascular: reports: Congestive heart failure (known cardiomyopathy; noted in chart LVEF 35% done 3 years ago), Hypertension, Atrial fibrillation (with RVR;), Other (recorded [facility] 2018) Respiratory: reports: None Neuro: Dementia, Peripheral neuropathy, Fainting Endocrine/Autoimmune: reports: None GI: reports: Other (anal CA with ostomy; not been able to manage; attributes to poor fine motor function) : reports: Benign prostate hypertrophy, Renal insuffiency, Other (hx of bladder papillary lesion not reported as malignant) HEENT: reports: Chronic vision loss Psych: reports: Depression, Anxiety, Other ( feels patient hx of autism; reported autism in father in hx) Derm: reports: Eczema, Other (foot wound left) MRSA Hx?: No - Past Surgical History General: reports: Colonoscopy, Other (AP resection with colostomy for anal cancer recurrence 2013 SBO w/ 10 cm bowel resection 2013) /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 They have been for over 20 years, this is a second marriage for them both. She is unable to identify any supportive community, she reports she is alienated from her family. She is [place] and came from the [facility]. She does not know their financial situation, other than concerned about being able to manage long-term any cost for placement. She reports she has her own health issues, but has managed most of the household for the last several years. One of the limiting factors for her, they do not have adequate laundry facilities, and this is made it difficult for her with his problems with his lack of abililty to do his ostomy. She does not know how to change it, but she did not know he was not managing it on his own. Patient himself was quite active in the community, well-known in [place], feels he most likely had autism, he was quite brilliant at most things. Family History - Family History Family History: Mother: (mother in 80s), Father: , CAD (father in 80s), Other family: Family History Comment/Other: records show one son Medications/Allergies - Medications Active Medication List: Active Medications Acetaminophen (Acetaminophen 325 Mg Tablet) 650 mg PO Q4HR PRN PRN Reason: Pain 1 to 4 Ceftriaxone Sodium 1 gm/ (Sodium Chloride) 100 mls @ 200 mls/hr IV DAILY MARY Last Infusion: 08/31/21 11:10 Dose: Infused Documented by: Azithromycin 500 mg/ Sodium (Chloride) 250 mls @ 250 mls/hr IV DAILY MARY Stop: 09/01/21 09:59 Last Infusion: 08/31/21 12:45 Dose: Infused Documented by: Dextrose/Sodium Chloride (D5.45ns) 1,000 mls @ 83.333 mls/hr IV .Q12H [facility] Last Infusion: 08/31/21 12:45 Dose: 83.333 mls/hr Documented by: Ondansetron HCl (Ondansetron Odt 4 Mg Tablet) 4 mg TL Q6HR PRN PRN Reason: Nausea / Vomiting Ondansetron HCl (Ondansetron 4 Mg/2 Ml Vial) 4 mg IVP Q6HR PRN PRN Reason: Nausea / Vomiting Quetiapine Fumarate (Quetiapine 25 Mg Tablet) 25 mg PO QPM [facility] Sodium Chloride (Sodium Chloride Flush 0.9% 10 Ml Syringe) 10 ml IVP PRN PRN PRN Reason: NEEDED PER PROVIDER ORDERS Sodium Chloride (Sodium Chloride Flush 0.9% 10 Ml Syringe) 10 ml IVP 0100,0900,1700 [facility] Last Admin: 08/31/21 16:10 Dose: Not Given Documented by: Tamsulosin HCl (Tamsulosin 0.4 Mg Capsule) 0.4 mg PO DAILY [facility] Last Admin: 08/31/21 08:27 Dose: 0.4 mg Documented by: Finasteride 5 mg PO QPM 07/27/18 Tamsulosin [Flomax] 0.4 mg PO DAILY 08/31/21 - Allergies Allergies/Adverse Reactions: Allergies Allergy/AdvReac Type Severity Reaction Status Date / Time Penicillins Allergy Intermediate Hives Verified 08/29/21 15:05 Review of Systems - Constitutional Constitutional: reports: Fatigue, Weakness, Poor appetite, Weight loss (10 pounds since 08/12; baseline previous weight was 180). denies: Fever - Eyes Eyes: reports: Vision loss - Ears, Nose & Throat Ears, Nose & Throat: reports: Hearing loss, Dry mouth. denies: Hearing aids (has them but not here at hospital) - Cardiovascular Cardiovascular: reports: Edema, Lightheadedness, Decr. exercise tolerance - Respiratory Respiratory: reports: SOB with exertion. denies: SOB at rest - Gastrointestinal Gastrointestinal: reports: Poor appetite, Other (ostomy) - Genitourinary Genitourinary: reports: Other (currently has whitney catheter;) - Musculoskeletal Musculoskeletal: reports: Stiffness, Muscle weakness, Other (has been bedbound since admit) - Integumentary Integumentary: reports: Dryness, Other (multiple brusing/skin tears) - Neurological Neurological: reports: General weakness, Memory problems - Psychiatric Psychiatric: reports: Delusions - Endocrine Endocrine: reports: Intolerance to cold - All Other Systems All Other Systems: reports: Other (limited ROS; patient unable to participate; vague historian) Physical Exam - Vital Signs Vital Signs: Vital Signs x48h Temp Pulse Resp BP Pulse Ox 08/31/21 16:00 36.5 C 65 16 106/70 98 08/31/21 09:14 61 16 93/63 100 - Physical Exam General Appearance: positive: Anxious Eyes Bilateral: positive: No scleral icterus Neck: positive: Trachea midline Cardiovascular: positive: Irregular Respiratory: positive: No respiratory distress, Diminished in bases. negative: Wheezes Abdomen: positive: Other (concave; ostomy pale) Skin: positive: Pallor, Dryness, Bruising, Wound (multiple skin tears and bruising), Other (deep eschar on left dorsal; does not appear pressure related; distal has large fluid blister) Extremities: positive: Pedal edema Neurologic/Psychiatric: positive: Mood/affect nml, Disoriented to person, Disoriented to place, Disoriented to time Palliative Care - POLST Patient has POLST: Yes POLST Status: DNR, Comfort Measures Pain: No pain Feelings of wellbeing/Perceived Quality of Life: Poor, Worsening Sleep: Variable sleep pattern Performance Status: Patient previous to fall and admission, had been ambulatory though has balance was poor and had had multiple falls. reports patient having more trouble with fine motor movements, thus unable to do his ostomy. Patient is needing more more assistance, and including demanding behaviors. Patient is total care currently, does need assistance with feeding, encouragement to eat, and has been bedbound since admit. - Palliative Care Discussion: Patient does not present with any insight into his current situation, nor does he really understand he is in the hospital. He attributes all of his problems to "balance issues". He does admit to confusion, and this is frustrating. Patient has previously filled out a POLST with date of April 18, [address] Chirinos, which was a DN AR/allow natural and comfort measures only. With no antibiotics, and no medically assisted nutrition by food. Met with patient's Roseline, who goes by David, Their friend and neighbor Tejas who has known them for 4 years. Tejas does present is very supportive and helpful, has seen that is overwhelmed, and is helping her negotiate her current situation. She does feel this is helpful, is given permission for him to participate in the family conference as well as a assist her with figuring out her finances. She very much would like him to be at peace, does perceive he is suffering, reports he was a brilliant man and is continued to deteriorate, she feels like his stubbornness has really added to his care difficulties, but does believe that he would not proceed he has quality of life at this point either. In the discussion of the continuum of care, patient has lost weight, dementia has worsened, care needs have increased dramatically, with the focus on comfort, patient would most likely be best served by hospice team. After much discussion, is feeling quite overwhelmed, discussed a least a breaking here for 3 or 4 weeks, in teasing it out patient's behaviors if better controlled with antipsychotics and focus on comfort medications, most likely would be able to transition him home if he were to survive past the respite stay period. Reports he often behaves much better for others, and is cooperative h ere in the hospital, but does get quite perseverative. Currently he is quite perseverative on getting his clothes so he is warmer. Counseling provided regarding the role of hospice, would be with visiting nurses to follow-up on symptom management, bathing services, and the medical director electrical engineering with the team would help identify medications that would make him more comfortable, less agitated, and more able to have a comfortable passing. After much discussion, we did discuss with the transition for comfort measures, would withdraw antibiotics, IV fluids, patient was still be offered food and fluids for comfort. Trials is going to assist Roseline to see about finances to have a memory care stay at least for short-term. This information was passed along to the social media job titles, who is assisting with looking at placement options. Call to medical director electrical engineering, regarding patient's weight loss, worsening dementia, decreased intake, decline in functional and cognitive status and goals of care. Patient is excepted to hospice services on discharge. This is communicated to the hospitalist. Also discussed need for titration and initiation of antipsychotics to help with patient's anxiety and agitation. Recommended initiating quetiapine 25 mg tonight, evaluate response and continue to titrate to comfort with the goal for decreasing anxiety, agitation, perseverative behaviors, and improving patient's ability to participate in care plan. Results - Lab Results Lab results reviewed: Yes Fish Bones: 08/31/21 05:10 08/31/21 05:10 Lab and Imaging Results: Lab Results x24hrs 08/31/21 08/31/21 Range/Units 05:10 05:10 WBC 7.7 (4.8-10.8) x10^3/uL RBC 4.30 L (4.70-6.10) 10^6/uL Hgb 14.2 (14.0-18.0) g/dL Hct 43.5 (42.0-52.0) % MCV 101.2 H (80.0-94.0) fL MCH 33.0 H (27.0-31.0) pg MCHC 32.6 (32.0-36.0) g/dL RDW 16.0 H (12.0-15.0) % Plt Count 93 L (130-450) 10^3/uL MPV 12.7 H (7.4-11.4) fL Neut # (Auto) 6.9 H (1.5-6.6) 10^3/uL Lymph # (Auto) 0.3 L (1.5-3.5) 10^3/uL [place] # (Auto) 0.5 (0.0-1.0) 10^3/uL Eos # (Auto) 0.0 (0.0-0.7) 10^3/uL Baso # (Auto) 0.0 (0.0-0.1) 10^3/uL Absolute Nucleated RBC 0.02 x10^3/uL Nucleated RBC % 0.3 /100WBC Sodium 146 H (135-145) mmol/L Potassium 4.6 (3.5-5.0) mmol/L Chloride 113 H (101-111) mmol/L Carbon Dioxide 23 (21-32) mmol/L Anion Gap 10.0 (6-13) BUN 47 H (6-20) mg/dL Creatinine 1.9 H (0.6-1.2) mg/dL Estimated GFR (MDRD) 34 L (>89) Glucose 119 H (70-100) mg/dL Calcium 8.6 (8.5-10.3) mg/dL Impression and Recommendations - Palliative Care Impression: This is an 86-year-old gentleman who presents with multiple comorbidities, functional decline, worsening dementia/cognitive decline, significant weight loss, increasing care needs, with identified goals of care to be comfort focused. In the context of complex social situation, goal is for placement in a memory care unit, with hospice to focus of comfort focused care and safe transition plan to meet care needs through end of life. Palliative care meeting with Winnie, had to support decision making, patient will transition to hospice on discharge from hospital. Recommendations/Counseling Done: 1. Dementia with behavioral disturbances. Patient has longstanding worsening cognitive decline and dementia, more acutely over the last 2 months, and severe altered mental status prior to admit. Unclear if patient had some kind of "event", or this is reflective of his overall decline. Does have neuropsychiatric behaviors of in intermittent agitation, anxiety, some delusi ons/hallucinations, unclear if these related delirium or worsening dementia. Patient would benefit from antipsychotic to assist with comfort, would recommend starting with quetiapine 25 mg at bedtime and titrate accordingly. Patient does get quite perseverative, and this is distressing to both patient and . Patient would be best managed in a memory care unit, as he can be distracted, does do well with professional caregivers, and is easily redirected. 2. Weight loss. This appears to be multifactorial, but cannot rule out any underlying malignancy given patient's history of recurrent anal cancer. Patient is unable to identify any abdominal pain, nausea, but does admit to early sati ety. Patient is needing to be fed currently, is been operating multiple foods that have been patient's favorites in the past. Discussed at this point in time with transition to comfort focused care, will offer food and fluid for comfort and assist as patient desires. Will discontinue IV hydration as part of transition to comfort care. 3. BPH. Patient most likely with urinary retention secondary to stopping BPH medications. Currently has a Wihtney catheter, will continue unless becomes problematic related to his dementia. He has been restarted on his medications. 4. Advanced care planning. Family meeting with decision maker Roseline, is being supported by her neighbor Tejas to assist with transition plan. Goal is to focus on comfort, for him to have a peaceful , and discharged with hospice support. Patient does have a POLST in place, with DN AR/DNI and comfort measures only, this was signed both by patient and . Copy taken for medical records and for hospice transfer. She will work with APARTMENT PROPERTY MANAGER, for placement. Goal is to transition to comfort measures, with and reviewed this is withdrawing antibiotics which would be consistent with his POLST, stopping IV hydration, offer food and fluids for comfort, and focus on comfort focused medications to assist patient with pain, anxiety, and agitation. 90 minutes with greater than 50% of this and in counseling with family conference with , friend Tejas, review of patient's condition and evaluation of patient, coordination of care with hospice claim review medical director, hospitalist, and social media job titles for hospital team.
[2021-08-31] MEDS: QUEtiapine 25 MG TABLET PO SCH (20:21)
[2021-09-01] MEDS: cefTRIAXone 1 GM in SODIUM CHLORIDE 0.9% MINIBAG 100 ML IV SCH (08:08)
[2021-09-01] MEDS: AZITHROMYCIN INJ 500 MG in SODIUM CHLORIDE 0.9% 250 ML IV SCH (09:25)
[2021-09-01] MEDS: SODIUM CHLORIDE FLUSH 0.9% 10 ML SYRINGE IVP SCH ×2 (09:26→16:38)
[2021-09-01] MEDS: TAMSULOSIN 0.4 MG CAPSULE PO SCH (10:54)
[2021-09-01] MEDS ORDERED: HALOPERIDOL 5 MG/ML VIAL IVP PRN (11:11)
[2021-09-01] MEDS ORDERED: GLYCOPYRROLATE 1 MG/5 ML VIAL SUBQ PRN (11:11)
[2021-09-01] MEDS ORDERED: LOPERAMIDE 2 MG CAPSULE PO PRN (11:11)
--- NOTE | 2021-09-01 13:17 | PROVIDER PROGRESS NOTE ---
Assessment/Plan - Problem List (1) Altered mental status Assessment/Plan: He was oriented to self, not place or time (he kept repeating that he is "in his sisters hotel"). Suspect this is likely due to worsening dementia. 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 Or this may potentially also be exacerbated by underlying infection. We started him on antibiotics for possible community-acquired pneumonia. A consult with Palliative Care provider, Isis West NP,was done and the has decided to transition him to Comfort Measures and Hospice. IV fluids and IV antibiotics will be stopped. Comfort care package will be ordered. Isis West has reached out to Hospice who states that he is a good hospice candidate. A referral to hospice and consultation for policy director will be written (2) Community acquired pneumonia Impression: Concern was for potential right lower lobe infiltrate. Will stop the empiric Azithro and Ceftriaxone, as per the 's wishes and palliative care consult Qualifiers: Laterality: right Lung location: lower lobe of lung Qualified Code(s): J18.9 - Pneumonia, unspecified organism (3) Dementia Impression: He has underlying dementia which appears to have progressed over the past few weeks to months. He has become agitated and impulsive/stubborn at home. He was also not taking care of his ostomy or eating adequately. He has a POLST form which states a DNR with a focus of comfort measures. A consult with Palliative Care provider, Isis West NP, was done. We started Seroquel at for the agitated dementia. Qualifiers: Dementia type: unspecified type Dementia behavioral disturbance: with behavioral disturbance Qualified Code(s): F03.91 - Unspecified dementia with behavioral disturbance (4) Urinary retention Impression: This may have beem contributing to his delirium. We ordered a Andrew catheter and resumed his Flomax. (5) Hypothermia Impression: He has been hypothermic, despite getting a bear hugger, which may be due to underlying infection. TSH was within normal limits. There has been no evidence of hypoglycemia. (6) Hypernatremia Impression: He had high Na. iv fluids and daily labs will bne stopped. (7) MARY ANN (acute kidney injury) Impression: This may have been due to urinary retention. Continue Andrew catheter. (8) CHF (congestive heart failure) Impression: He has chronic systolic heart failure. Although he has lower extremity edema, he did not appear to be in overt heart failure. Will order comfort measures, he is a Hospice candidate. Qualifiers: Heart failure type: systolic Heart failure chronicity: chronic Qualified Code(s): I50.22 - Chronic systolic (congestive) heart failure - Current Meds Current Meds: Current Medications Generic Name Dose Route Start Last Admin Trade Name Freq PRN Reason Stop Dose Admin Quetiapine Fumarate 25 mg 08/31/21 21:00 08/31/21 20:21 Quetiapine 25 Mg Tablet PO 25 mg QPM MARY Administration Sodium Chloride 10 ml 08/30/21 01:00 09/01/21 09:26 Sodium Chloride Flush 0.9% 10 Ml Syringe IVP 10 ml 0100,0900,1700 MARY Administration Tamsulosin HCl 0.4 mg 08/31/21 09:00 09/01/21 10:54 Tamsulosin 0.4 Mg Capsule PO Not Given DAILY MARY - Lab Result Fish Bone Diagrams: 08/31/21 05:10 08/31/21 05:10 - Additional Planning My Orders: My Active Orders 08/31/21 21:00 QUEtiapine [SEROquel] 25 mg PO QPM 09/01/21 11:11 Comfort Care [RC] QSHIFT Oxygen Therapy [RC] .PRN Turn and Reposition [RC] PRN Glycopyrrolate [Robinul] 0.2 mg SUBQ Q4H PRN Haloperidol Inj [Haldol Inj] 0.5 mg IVP Q2H PRN Loperamide [Imodium] 2 mg PO Q2H PRN Morphine Oral Soln [Roxanol] 10 mg SL Q2HR PRN Subjective - Subjective Nursing Reports: Other (Lethargic after having breakfast, also low BP and jhypothermic at 35.5) Objective Vital Signs: Vital Signs - 24 hr 08/31/21 08/31/21 09/01/21 16:00 23:33 05:05 Temperature 36.5 C 35.6 C L 36.7 C Heart Rate [ 65 60 Brachial] Respiratory 16 20 Rate Blood Pressure 111/79 [Left Brachial artery] Blood Pressure 106/70 [Right Brachial artery] O2 Saturation 98 94 09/01/21 09/01/21 09/01/21 07:43 08:23 10:56 Temperature 35.2 C L Heart Rate [ 72 50 L Brachial] Respiratory 20 18 Rate Blood Pressure [Left Brachial artery] Blood Pressure 144/93 H 107/59 L 75/57 L [Right Brachial artery] O2 Saturation 97 94 Oxygen O2 Source Room air I&O (Last 24 Hrs): Intake and Output Totals x24h 08/30/21 08/31/21 09/01/21 23:59 23:59 23:59 Intake Total 7815.571 7126.279 1484.723 Output Total 1075 475 175 Balance 306.973 6592.279 1309.723 General: Other (Lethergic, awakens to sternal rub, is under bear hugger) Neck: No JVD Neuro: Non Focal, Other (Fed him self this morning, then lethargic, awakens to sternal rub.) Cardiovascular: Regular rate Respiratory: No respiratory distress, Breath sounds nml Abdomen: Normal bowel sounds, Soft Extremities: No edema, No tenderness/swelling - Results Results: Laboratory Results WBC 7.7 x10^3/uL (4.8-10.8) 08/31/21 05:10 RBC 4.30 10^6/uL (4.70-6.10) L 08/31/21 05:10 Hgb 14.2 g/dL (14.0-18.0) 08/31/21 05:10 Hct 43.5 % (42.0-52.0) 08/31/21 05:10 MCV 101.2 fL (80.0-94.0) H 08/31/21 05:10 MCH 33.0 pg (27.0-31.0) H 08/31/21 05:10 MCHC 32.6 g/dL (32.0-36.0) 08/31/21 05:10 RDW 16.0 % (12.0-15.0) H 08/31/21 05:10 Plt Count 93 10^3/uL (130-450) L 08/31/21 05:10 MPV 12.7 fL (7.4-11.4) H 08/31/21 05:10 Neut # (Auto) 6.9 10^3/uL (1.5-6.6) H 08/31/21 05:10 Lymph # (Auto) 0.3 10^3/uL (1.5-3.5) L 08/31/21 05:10 Summers # (Auto) 0.5 10^3/uL (0.0-1.0) 08/31/21 05:10 Eos # (Auto) 0.0 10^3/uL (0.0-0.7) 08/31/21 05:10 Baso # (Auto) 0.0 10^3/uL (0.0-0.1) 08/31/21 05:10 Absolute Nucleated RBC 0.02 x10^3/uL 08/31/21 05:10 Nucleated RBC % 0.3 /100WBC 08/31/21 05:10 Sodium 146 mmol/L (135-145) H 08/31/21 05:10 Potassium 4.6 mmol/L (3.5-5.0) 08/31/21 05:10 Chloride 113 mmol/L (101-111) H 08/31/21 05:10 Carbon Dioxide 23 mmol/L (21-32) 08/31/21 05:10 Anion Gap 10.0 (6-13) 08/31/21 05:10 BUN 47 mg/dL (6-20) H 08/31/21 05:10 Creatinine 1.9 mg/dL (0.6-1.2) H 08/31/21 05:10 Estimated GFR (MDRD) 34 (>89) L 08/31/21 05:10 Glucose 119 mg/dL (70-100) H 08/31/21 05:10 Lactic Acid 1.1 mmol/L (0.5-2.2) 08/30/21 06:48 Calcium 8.6 mg/dL (8.5-10.3) 08/31/21 05:10 Magnesium 2.4 mg/dL (1.7-2.8) 08/29/21 15:57 Total Bilirubin 1.6 mg/dL (0.2-1.0) H 08/29/21 15:57 AST 43 IU/L (10-42) H 08/29/21 15:57 ALT 40 IU/L (10-60) 08/29/21 15:57 Alkaline Phosphatase 80 IU/L (42-121) 08/29/21 15:57 Total Protein 6.4 g/dL (6.7-8.2) L 08/29/21 15:57 Albumin 3.3 g/dL (3.2-5.5) 08/29/21 15:57 Globulin 3.1 g/dL (2.1-4.2) 08/29/21 15:57 Albumin/Globulin Ratio 1.1 (1.0-2.2) 08/29/21 15:57 Lipase 28 U/L (22-51) 08/29/21 15:57 TSH 5.24 uIU/mL (0.34-5.60) 08/30/21 05:35 Nasal Adenovirus (PCR) NOT DETECTED 08/29/21 16:10 Nasal B. parapertussis DNA (PCR) NOT DETECTED 08/29/21 16:10 Nasal Coronavir 229E PCR NOT DETECTED 08/29/21 16:10 Nasal Coronavir HKU1 PCR NOT DETECTED 08/29/21 16:10 Nasal Coronavir NL63 PCR NOT DETECTED 08/29/21 16:10 Nasal Coronavir OC43 PCR NOT DETECTED 08/29/21 16:10 Nasal Enterovir/Rhinovir PCR NOT DETECTED 08/29/21 16:10 Nasal Influenza B PCR NOT DETECTED 08/29/21 16:10 Nasal Influenza A PCR NOT DETECTED 08/29/21 16:10 Nasal Parainfluen 1 PCR NOT DETECTED 08/29/21 16:10 Nasal Parainfluen 2 PCR NOT DETECTED 08/29/21 16:10 Nasal Parainfluen 3 PCR NOT DETECTED 08/29/21 16:10 Nasal Parainfluen 4 PCR NOT DETECTED 08/29/21 16:10 Nasal RSV (PCR) NOT DETECTED 08/29/21 16:10 Nasal B.pertussis DNA PCR NOT DETECTED 08/29/21 16:10 Nasal C.pneumoniae (PCR) NOT DETECTED 08/29/21 16:10 Red Human Metapneumo PCR NOT DETECTED 08/29/21 16:10 Nasal M.pneumoniae (PCR) NOT DETECTED 08/29/21 16:10 Nasal SARS-CoV-2 (PCR) NOT DETECTED 08/29/21 16:10 - Procedures Procedures: Procedures ANAL BIOPSY (08/26/13) RIGID PROCTOSIGMOIDOSCOPY (08/26/13) VENOUS CATHETERIZATION NEC (01/31/13)
[2021-09-01] MEDS: QUEtiapine 25 MG TABLET PO SCH (20:37)
[2021-09-02] MEDS: SODIUM CHLORIDE FLUSH 0.9% 10 ML SYRINGE IVP SCH ×4 (00:37→23:56)
[2021-09-02] MEDS ORDERED: diphenhydrAMINE INJ 50 MG/ML VIAL IVP STA (02:06)
[2021-09-02] MEDS ORDERED: LORazepam 2 MG/ML VIAL IVP STA (02:44)
[2021-09-02 08:24] VITALS: BP 101/60
[2021-09-02] MEDS: TAMSULOSIN 0.4 MG CAPSULE PO SCH (11:19)
[2021-09-02] MEDS: MORPHINE SOL 10 MG/0.5 ML ORAL SYRINGE SL PRN ×4 (12:28→23:56)
--- NOTE | 2021-09-02 17:32 | PROVIDER PROGRESS NOTE ---
Assessment/Plan - Problem List (1) Comfort measures only status Assessment/Plan: A comfort care package has been ordered. Last night he was still agitated, climbing out of bed, required Seroquel, Haldol, Benadryl and 0.5 Ativan IV for agitation.Today the patient has needed Morphine for SOB and restlessnes. He is episodes of having agonal respirations. I reviewed with his at bedside (and her neighbor, an RN was at bedside too) that he may last like this for several days. Social work has confirmed that hospice can accept him, on 09/06/2021. The wants to take him home to at home. A hospital bed has been ordered for his home, will be delivered tomorrow. He will be discharged home tomorrow. - Current Meds Current Meds: Current Medications Generic Name Dose Route Start Last Admin Trade Name Freq PRN Reason Stop Dose Admin Haloperidol 0.5 mg 09/01/21 11:11 09/02/21 01:06 Haloperidol 5 Mg/Ml Vial IVP 0.5 mg Q2H PRN Administration Agitation Morphine Sulfate 10 mg 09/01/21 11:11 09/02/21 16:02 Morphine Bel 10 Mg/0.5 Ml Oral Syringe SL 10 mg Q2HR PRN Administration PAIN Quetiapine Fumarate 25 mg 08/31/21 21:00 09/01/21 20:37 Quetiapine 25 Mg Tablet PO 25 mg QPM MARY Administration Sodium Chloride 10 ml 08/30/21 01:00 09/02/21 16:02 Sodium Chloride Flush 0.9% 10 Ml Syringe IVP 10 ml 0100,0900,1700 MARY Administration Tamsulosin HCl 0.4 mg 08/31/21 09:00 09/02/21 11:19 Tamsulosin 0.4 Mg Capsule PO Not Given DAILY MARY - Lab Result Fish Bone Diagrams: 08/31/21 05:10 08/31/21 05:10 Subjective - Subjective Nursing Reports: Sedated (He got Morphime for restlessness and SOB) Objective Vital Signs: Vital Signs - 24 hr 09/02/21 09/02/21 09/02/21 00:44 08:21 15:40 Temperature 36 C L 35.2 C L Heart Rate [ 86 67 Brachial] Respiratory 18 15 Rate Blood Pressure 121/80 101/60 [Right Brachial artery] O2 Saturation 99 93 Oxygen O2 Source Room air I&O (Last 24 Hrs): Intake and Output Totals x24h 08/31/21 09/01/21 09/02/21 23:59 23:59 23:59 Intake Total 2930.279 1634.723 70 Output Total 475 650 475 Balance 2455.279 984.723 -405 General: Other (sedated) HEENT: Mucous membr. moist/pink Neck: Supple Neuro: Other (sedated) Cardiovascular: Regular rate, No murmurs Respiratory: No respiratory distress, Breath sounds nml - Results Results: Laboratory Results WBC 7.7 x10^3/uL (4.8-10.8) 08/31/21 05:10 RBC 4.30 10^6/uL (4.70-6.10) L 08/31/21 05:10 Hgb 14.2 g/dL (14.0-18.0) 08/31/21 05:10 Hct 43.5 % (42.0-52.0) 08/31/21 05:10 MCV 101.2 fL (80.0-94.0) H 08/31/21 05:10 MCH 33.0 pg (27.0-31.0) H 08/31/21 05:10 MCHC 32.6 g/dL (32.0-36.0) 08/31/21 05:10 RDW 16.0 % (12.0-15.0) H 08/31/21 05:10 Plt Count 93 10^3/uL (130-450) L 08/31/21 05:10 MPV 12.7 fL (7.4-11.4) H 08/31/21 05:10 Neut # (Auto) 6.9 10^3/uL (1.5-6.6) H 08/31/21 05:10 Lymph # (Auto) 0.3 10^3/uL (1.5-3.5) L 08/31/21 05:10 [place] # (Auto) 0.5 10^3/uL (0.0-1.0) 08/31/21 05:10 Eos # (Auto) 0.0 10^3/uL (0.0-0.7) 08/31/21 05:10 Baso # (Auto) 0.0 10^3/uL (0.0-0.1) 08/31/21 05:10 Absolute Nucleated RBC 0.02 x10^3/uL 08/31/21 05:10 Nucleated RBC % 0.3 /100WBC 08/31/21 05:10 Sodium 146 mmol/L (135-145) H 08/31/21 05:10 Potassium 4.6 mmol/L (3.5-5.0) 08/31/21 05:10 Chloride 113 mmol/L (101-111) H 08/31/21 05:10 Carbon Dioxide 23 mmol/L (21-32) 08/31/21 05:10 Anion Gap 10.0 (6-13) 08/31/21 05:10 BUN 47 mg/dL (6-20) H 08/31/21 05:10 Creatinine 1.9 mg/dL (0.6-1.2) H 08/31/21 05:10 Estimated GFR (MDRD) 34 (>89) L 08/31/21 05:10 Glucose 119 mg/dL (70-100) H 08/31/21 05:10 Lactic Acid 1.1 mmol/L (0.5-2.2) 08/30/21 06:48 Calcium 8.6 mg/dL (8.5-10.3) 08/31/21 05:10 Magnesium 2.4 mg/dL (1.7-2.8) 08/29/21 15:57 Total Bilirubin 1.6 mg/dL (0.2-1.0) H 08/29/21 15:57 AST 43 IU/L (10-42) H 08/29/21 15:57 ALT 40 IU/L (10-60) 08/29/21 15:57 Alkaline Phosphatase 80 IU/L (42-121) 08/29/21 15:57 Total Protein 6.4 g/dL (6.7-8.2) L 08/29/21 15:57 Albumin 3.3 g/dL (3.2-5.5) 08/29/21 15:57 Globulin 3.1 g/dL (2.1-4.2) 08/29/21 15:57 Albumin/Globulin Ratio 1.1 (1.0-2.2) 08/29/21 15:57 Lipase 28 U/L (22-51) 08/29/21 15:57 TSH 5.24 uIU/mL (0.34-5.60) 08/30/21 05:35 Nasal Adenovirus (PCR) NOT DETECTED 08/29/21 16:10 Nasal B. parapertussis DNA (PCR) NOT DETECTED 08/29/21 16:10 Nasal Coronavir 229E PCR NOT DETECTED 08/29/21 16:10 Nasal Coronavir HKU1 PCR NOT DETECTED 08/29/21 16:10 Nasal Coronavir NL63 PCR NOT DETECTED 08/29/21 16:10 Nasal Coronavir OC43 PCR NOT DETECTED 08/29/21 16:10 Nasal Enterovir/Rhinovir PCR NOT DETECTED 08/29/21 16:10 Nasal Influenza B PCR NOT DETECTED 08/29/21 16:10 Nasal Influenza A PCR NOT DETECTED 08/29/21 16:10 Nasal Parainfluen 1 PCR NOT DETECTED 08/29/21 16:10 Nasal Parainfluen 2 PCR NOT DETECTED 08/29/21 16:10 Nasal Parainfluen 3 PCR NOT DETECTED 08/29/21 16:10 Nasal Parainfluen 4 PCR NOT DETECTED 08/29/21 16:10 Nasal RSV (PCR) NOT DETECTED 08/29/21 16:10 Nasal B.pertussis DNA PCR NOT DETECTED 08/29/21 16:10 Nasal C.pneumoniae (PCR) NOT DETECTED 08/29/21 16:10 Red Human Metapneumo PCR NOT DETECTED 08/29/21 16:10 Nasal M.pneumoniae (PCR) NOT DETECTED 08/29/21 16:10 Nasal SARS-CoV-2 (PCR) NOT DETECTED 08/29/21 16:10 - Procedures Procedures: Procedures ANAL BIOPSY (08/26/13) RIGID PROCTOSIGMOIDOSCOPY (08/26/13) VENOUS CATHETERIZATION NEC (01/31/13)
[2021-09-02] MEDS: QUEtiapine 25 MG TABLET PO SCH (19:37)
--- NOTE | 2021-09-03 02:40 | Discharge Plan ---
Discharge Plan Problem Reviewed?: Yes Disposition: 20 Condition: Stable No Smoking: If you smoke, Please STOP! Call for help. Follow-up with: Provider,Other [Primary Care Provider] -
--- NOTE | 2021-09-03 02:40 | DISCHARGE SUMMARY ---
Discharge Summary Admit Date: 08/29/21 Discharge Date: 09/03/21 Discharging Provider: Jhony Fernandeztu Code Status: Do Not Attempt Resuscitation Discharge Disposition: 20 - DIAGNOSES Admission Diagnoses: Altered mental status Acute kidney injury CHF Dementia Atrial fibrillation BPH Hypertension Discharge Diagnoses with Status of Each Condition: Altered mental status: Patient Community Acquired pneumonia: Patient Acute kidney injury: Patient CHF: Patient Dementia: Patient Urinary retention Hypothermia: Patient Hypernatremia: Patient Atrial fibrillation: Patient BPH: Patient Hypertension: Patient - HPI History of Present Illness: "Patient with dementia comes in with increased confusion over the last few days. He's not taking his meds. He is not caring for his ostomy. History is limited from the patient because of his confusion and dementia." Patient was resting comfortably in bed at time of this visit. He is alert, oriented to self and place but not reason for presentation. He denied any complains. He denied chest pain, dyspnea, abdominal pain, nausea, vomiting, fever or chills. On exam bruises noted on upper thigh. Also has a skin tear on the dorsal surface of the left foot. - HOSPITAL COURSE Hospital Course: Later in the night on the day of admission the patient was hypothermic with temperatures of 35 C. As a result a bear hugger was applied. Patient was started on empiric antibiotics of Rocephin and azithromycin for possible/suspected community-acquired pneumonia. After discussion with his palliative care was consulted. The patient was seen by Isis West. Throughout the course of the patient's hospital stay he remained confused. A referral was made to hospice care. Patient was made comfort measures only status on 09/02/2021 In the early mornings of 08/24/2021 it was brought to my attention that the patient was not responsive. Upon presentation to bedside patient was nonresponsive to tactile or verbal stimuli. Pupils were fixed dilated and nonreactive to light. Carotid and radial pulses were absent bilaterally. There were no heart or breath sounds on auscultation. The patient was pronounced at 2:25 AM on 09/03/2021. The patient's was notified. - ALLERGIES Allergies/Adverse Reactions: Allergies Allergy/AdvReac Type Severity Reaction Status Date / Time Penicillins Allergy Intermediate Hives Verified 08/29/21 15:05 - MEDICATIONS Home Medications: Ambulatory Orders Medication Instructions Recorded Confirmed Finasteride 5 mg PO QPM 07/27/18 08/31/21 Tamsulosin [Flomax] 0.4 mg PO DAILY 08/31/21 08/31/21 - LABS Result Diagrams: 08/31/21 05:10 08/31/21 05:10 - TIME SPENT Time Spent in Discharge (Minutes): 15
== END 2021-09-03 02:25 | disposition expired | DRG 682 ==
LOC: EDUNIT# → ED 14:54 → MS2 17:19 → OBSVTOIN 08-30 10:56
PROVIDERS: ADMIT Internal Medicine; ATTEND Internal Medicine
DX: N17.9 Acute kidney failure, unspecified (principal); E86.0 Dehydration; J18.9 Pneumonia, unspecified organism; I50.9 Heart failure, unspecified; F03.91 Unspecified dementia, unspecified severity, with behavioral disturbance; N40.0 Benign prostatic hyperplasia without lower urinary tract symptoms; E87.0 Hyperosmolality and hypernatremia; R60.0 Localized edema; R91.8 Other nonspecific abnormal finding of lung field; Z20.822 Contact with and (suspected) exposure to COVID-19; I50.22 Chronic systolic (congestive) heart failure; I42.9 Cardiomyopathy, unspecified; E46 Unspecified protein-calorie malnutrition; Z68.1 Body mass index [BMI] 19.9 or less, adult; I11.0 Hypertensive heart disease with heart failure; N40.1 Benign prostatic hyperplasia with lower urinary tract symptoms; I48.91 Unspecified atrial fibrillation; T45.516A Underdosing of anticoagulants, initial encounter; F41.9 Anxiety disorder, unspecified; R33.8 Other retention of urine; R62.7 Adult failure to thrive; R68.0 Hypothermia, not associated with low environmental temperature; Z51.5 Encounter for palliative care; Z66 Do not resuscitate; Z74.01 Bed confinement status; Z79.01 Long term (current) use of anticoagulants; Z79.899 Other long term (current) drug therapy; Z85.048 Personal history of other malignant neoplasm of rectum, rectosigmoid junction, and anus; Z86.73 Personal history of transient ischemic attack (TIA), and cerebral infarction without residual deficits; Z87.891 Personal history of nicotine dependence; Z88.0 Allergy status to penicillin; Z91.14 Patient's other noncompliance with medication regimen; Z91.19 Patient's noncompliance with other medical treatment and regimen; Z93.3 Colostomy status
CPT/HCPCS: 0202U; 36415; 51798; 80048; 80053; 83605; 83690; 83735; 84443; 85025; 87040; 96365; 96367; 99223; 99283